=== PATIENT | female | born 1970 | race Caucasian/White ===

== ENCOUNTER 2016-04-10 14:39 | Emergency (ER) | payer MEDICAID, OTHER ==
[2016-04-10 15:42] VITALS: BP 141/73
--- NOTE | 2016-04-10 16:17 | UC ---
UC General HPI - HPI Summary HPI Summary: malaise, aches, chills, congestion, dry cough, itchy and red left eye for 3d. Works in a [employer]. Many ill staff members. Did get a flu shot this year. - History of Current Complaint Chief Complaint: UCGeneralIllness Stated Complaint: SORE THROAT/COUGH/LEFT EYE ISSUE Time Seen by Provider: 04/10/16 16:02 Hx Obtained From: Patient Onset/Duration: Gradual Onset, Lasting Days - 3 Timing: Constant Onset Severity: Mild Current Severity: Mild Associated Signs & Symptoms: Positive: Decreased Oral Intake, Fever, Headache, Weakness - Allergy/Home Medications Allergies/Adverse Reactions: Allergies Allergy/AdvReac Type Severity Reaction Status Date / Time Penicillins Allergy Rash Verified 04/10/16 15:42 Sulfa Drugs Allergy REDNESS, Verified 04/10/16 15:42 BURNING PMH/Surg Hx/FS Hx/Imm Hx Endocrine History Of: Denies: Diabetes, Thyroid Disease, Hyperthyroidism, Hypothyroidism, Dyslipidemia Cardiovascular History Of: Denies: Cardiac Disorders, Hypertension, Pacemaker/ICD, Myocardial Infarction , Congestive Heart Failure, Atrial Fibrillation, Deep Vein Thrombosis, Bleeding Disorders Respiratory History Of: Denies: COPD, Asthma GI/ History Of: Reports: Gastroesophageal Reflux Denies: Ulcer, Gastrointestinal Bleed, Gall Bladder Disease, Kidney Stones, Diverticulitis, Renal Disease, Urosepsis Neurological History Of: Reports: Migraine - IN THE PAST Denies: TIA, CVA, Dementia, Seizures Psychological History Of: Reports: Depression - ON MEDS Denies: Anxiety, Bipolar Disorder, Schizophrenia, Post Traumatic Stress Disorder Cancer History Of: Denies: Lung Cancer, Colorectal Cancer, Breast Cancer, Prostate Cancer, Cervical Cancer Other History Of: Negative For: HIV, Hepatitis B, Hepatitis C - Surgical History Surgical History: Yes Surgery Procedure, Year, and Place: TUBAL, 2009, [id number], TONGUE SURGERY, [facility], uterine ablation NVD - Family History Known Family History: Positive: Hypertension - Social History Occupation: Employed Full-time - cook in retirement Lives: With Family Alcohol Use: Occasionally Substance Use Type: None Smoking Status (MU): Former Smoker Type: Cigarettes Length of Time of Smoking/Using Tobacco: 20 years When Did the Patient Quit Smoking/Using Tobacco: 2007 - Immunization History Most Recent Influenza Vaccination: FALL 2014 Review of Systems Constitutional: Fever, Chills, Fatigue Skin: Negative Eyes: Drainage, Eye Redness ENT: Nasal Discharge Respiratory: Cough - mild, dry Cardiovascular: Negative Gastrointestinal: Negative Genitourinary: Negative Motor: Negative Neurovascular: Negative Musculoskeletal: Negative Neurological: Negative Psychological: Negative All Other Systems Reviewed And Are Negative: Yes Physical Exam Triage Information Reviewed: Yes Appearance: Well-Appearing, No Pain Distress, Well-Nourished Vital Signs: Initial Vital Signs Temp 97.5 F 04/10/16 15:36 Pulse 66 04/10/16 15:36 Resp 16 04/10/16 15:36 BP 141/73 04/10/16 15:36 Pulse Ox 100 04/10/16 15:36 Vital Signs Reviewed: Yes Eyes: Positive: Conjunctiva Inflamed - mild, left ENT: Positive: Hearing grossly normal, Pharynx normal, Nasal congestion, TMs normal. Negative: Tonsillar swelling, Tonsillar exudate, Muffled/hoarse voice Neck exam: Normal Neck: Positive: Supple Respiratory Exam: Normal Respiratory: Positive: Lungs clear, Normal breath sounds, No respiratory distress, No accessory muscle use Cardiovascular Exam: Normal Musculoskeletal Exam: Normal Neurological Exam: Normal Psychological Exam: Normal Skin Exam: Normal Course/Dx - Differential Dx - Multi-Symptom Provider Diagnoses: URI with conjunctivitis Discharge - Discharge Plan Condition: Stable Disposition: HOME Prescriptions: Benzonatate CAP* [Tessalon CAP*] 100 mg PO TID #30 cap Ciprofloxacin 0.3% OPTH.VÍCTOR* [Cipro 0.3% Opth*] 1 drop LEFT EYE Q4H #1 btl Pseudoephedrine HCl [Sudafed 12 Hour] 120 mg PO BID PRN #20 tab PRN Reason: Congestion Patient Education Materials: Upper Respiratory Infection (ED), Conjunctivitis ( ED) Forms: *Work Release Referrals: Fab Huynh MD [Primary Care Provider] -
== END 2016-04-10 16:21 | disposition home or self-care (01) ==
LOC: UCCORT 14:39
DX: J06.9 Acute upper respiratory infection, unspecified (principal); H10.32 Unspecified acute conjunctivitis, left eye; Z88.0 Allergy status to penicillin; Z88.2 Allergy status to sulfonamides; Z87.891 Personal history of nicotine dependence
CPT/HCPCS: 99212; G0463

== ENCOUNTER 2016-04-25 09:03 | Emergency (ER) | payer MEDICAID, OTHER ==
[2016-04-25 09:51] VITALS: BP 126/91
--- NOTE | 2016-04-25 11:14 | UC ---
Darrell Kohler Adam, [facility] on 04/25/16 at 1050 . Respiratory Complaint HPI - HPI Summary HPI Summary: Nurse's Note: COUGH, CONGESTION, SCRATCHY THROAT, CHILLS FOR THE PAST MONTH. WAS SEEN AT [facility] TWO WKS AGO, DIAGNOSED WITH UPPER RESPIRATORY INFECTION, TOOK MEDS PRESCRIBED. STARTED TO FEEL BETTER AND NOW SYMPTOMS ARE RETURNING. In Room: Pt has been sick for about a month. A few weeks ago she was given medication after her eyes became itchy. She started feeling better after resting for 2 days but as of yesterday she is feeling sick again. Pt states that her chief complaint is that her sinuses hurt and she has been having some drainage. Her ears and throat are also itchy. She has been having cold/hot sensations but her temperature has been around 98.4 F. She has a cough that is sometimes productive. No CP with the cough. No N/V/D or abdominal pain. No Hx of asthma. PMHx of GERD, migraines, and depression. FMHx of HTN and cardiac disease. Pt is a former smoker. - History of Current Complaint Chief Complaint: UCGeneralIllness Stated Complaint: SINUS COMPLAINT Time Seen by Provider: 04/25/16 09:45 Hx Obtained From: Patient Hx Last Menstrual Period: 5-6 YRS AGO, ABLATION Onset/Duration: Gradual Onset, Lasting Weeks, Still Present Timing: Constant Severity Initially: Moderate Severity Currently: Moderate Character: Cough: Nonproductive Aggravating Factors: Nothing Alleviating Factors: Nothing Associated Signs And Symptoms: Positive: Chills, URI, Nasal Congestion - Allergies/Home Medications Allergies/Adverse Reactions: Allergies Allergy/AdvReac Type Severity Reaction Status Date / Time Penicillins Allergy Rash Verified 04/10/16 15:42 Sulfa Drugs Allergy REDNESS, Verified 04/10/16 15:42 BURNING PMH/Surg Hx/FS Hx/Imm Hx Endocrine History Of: Denies: Diabetes, Thyroid Disease, Hyperthyroidism, Hypothyroidism, Dyslipidemia Cardiovascular History Of: Denies: Cardiac Disorders, Hypertension, Pacemaker/ICD, Myocardial Infarction , Congestive Heart Failure, Atrial Fibrillation, Deep Vein Thrombosis, Bleeding Disorders Respiratory History Of: Denies: COPD, Asthma GI/ History Of: Reports: Gastroesophageal Reflux Denies: Ulcer, Gastrointestinal Bleed, Gall Bladder Disease, Kidney Stones, Diverticulitis, Renal Disease, Urosepsis Neurological History Of: Reports: Migraine - IN THE PAST Denies: TIA, CVA, Dementia, Seizures Psychological History Of: Reports: Depression - ON MEDS Denies: Anxiety, Bipolar Disorder, Schizophrenia, Post Traumatic Stress Disorder Cancer History Of: Denies: Lung Cancer, Colorectal Cancer, Breast Cancer, Prostate Cancer, Cervical Cancer Other History Of: Negative For: HIV, Hepatitis B, Hepatitis C - Surgical History Surgical History: Yes Surgery Procedure, Year, and Place: TUBAL, 2009, [id number], TONGUE SURGERY, [facility], uterine ablation NVD - Family History Known Family History: Positive: Cardiac Disease, Hypertension, Other - Breast CA (maternal aunt and maternal grandmother) - Social History Occupation: Employed Full-time Lives: With Family - Domestic partner male Alcohol Use: Occasionally Substance Use Type: None Smoking Status (MU): Former Smoker Type: Cigarettes Length of Time of Smoking/Using Tobacco: 20 years When Did the Patient Quit Smoking/Using Tobacco: 2007 - Immunization History Most Recent Influenza Vaccination: FALL 2015 Review of Systems Constitutional: Chills ENT: Sore Throat, Nasal Discharge Respiratory: Cough All Other Systems Reviewed And Are Negative: Yes Physical Exam Triage Information Reviewed: Yes Appearance: Well-Appearing, No Pain Distress, Well-Nourished Vital Signs: Initial Vital Signs Temp 98.2 F 04/25/16 09:48 Pulse 79 04/25/16 09:48 Resp 18 04/25/16 09:48 BP 126/91 04/25/16 09:48 Pulse Ox 98 04/25/16 09:48 Eyes: Positive: Conjunctiva Clear ENT: Positive: Hearing grossly normal, Pharynx normal, Other: - SUPERIOR ERYTHEMA IN THE RIGHT TM. MILDLY TENDER MAXILLARY SINUSES.. Negative: Muffled/ hoarse voice Neck: Positive: Supple, No Lymphadenopathy Respiratory: Positive: Chest non-tender, Other: - EXTENDED EXPIRATORY PHASE WITH SCATTERED RHONCHI. Cardiovascular: Positive: RRR, No Murmur Abdomen Description: Positive: Nontender, No Organomegaly, Soft Bowel Sounds: Positive: Present Musculoskeletal: Positive: Strength Intact, ROM Intact Neurological: Positive: Alert Psychological: Positive: Age Appropriate Behavior Skin: Negative: rashes UC Diagnostic Evaluation - Laboratory O2 Sat by Pulse Oximetry: 98 Respiratory Course/Dx - Differential Dx/Diagnosis Differential Diagnosis/HQI/PQRI: Other - PNA vs URI Provider Diagnoses: 1. Bronchitis with bronchospasm. 2. Sinusitis Discharge - Discharge Plan Condition: Stable Disposition: HOME Prescriptions: Albuterol HFA INHALER* [Ventolin HFA Inhaler*] 1 - 2 puff INH Q4H PRN #1 mdi PRN Reason: Cough Azithromycin TAB* [Zithromax TAB*] 250 mg PO DAILY #6 tab Spacer/Aerosol-Holding Chamber [Aerochamber Mv] 1 mis XX Q6HR #1 mis Patient Education Materials: Sinusitis (ED), Acute Bronchitis (ED), Bronchospasm (ED) Forms: *Work Release Referrals: Fab Huynh MD [Primary Care Provider] - Additional Instructions: Follow up with Dr. Huynh. WE DISCUSSED: 1. YOU HAVE BRONCHITIS WITH BRONCHOSPASM AND SINUSITIS. 2. USE INHALER AND SPACER, TWO PUFFS FOUR TIMES A DAY. 3. Z VERN ANTIBIOTIC. 4. REST FOR TODAY AND TOMORROW. 5. SEE INSTRUCTIONS BELOW. COUGH, CONGESTION of CHEST, SINUSES OR EARS: The most important goal is to liquefy all the phlegm and get it out of your head and chest. Any illness causing cough, congestion, sore throat or sinus discomfort can be helped by doing the following: STAND UNDER SHOWER STREAM TO LOOSEN SECRETIONS. STAY AWAY FROM ANY SMOKE OR IRRITANTS. WHAT ELSE CAN HELP RELIEVE YOUR SYMPTOMS: DECONGESTANT: helps relieve stuffiness and clears sinuses. Pseudoephedrine ( Sudafed or generic) is effective but you need to ask the pharmacist for it because it may be kept behind the counter. ANTIHISTAMINES: are NOT helpful in many colds and flus because they can worsen sore throat, dry eyes and mouth and cause drowsiness. Examples are diphenhydramine, doxylamine and chlorpheniramine. They can help dry you out if you are having profuse, clear drainage from the nose. EXPECTORANTS: helps thin mucous in the nose and chest, making it easier to clear the fluid out. Expectorants are in most combination cough/cold remedies and should be taken with plenty of water. Guaifenesin is the most common expectorant and it comes in pill or liquid form. Mucinex is an extended release form of guaifenesin. COUGH SUPPRESANT: reduces the body's cough reflex. Dextromethorphan is in over the counter products, but sometimes narcotics such as codeine or hydrocodone are used to suppress cough. The most important goal is to liquefy all the phlegm and get it out of your head and chest: The following medicines (in prescription form or you can buy them without prescription) may help: To help with cough: DEXTROMETHORPHAN (Vicks, Robitussin, Nyquil and other brands) To help break up phlegm: GUAIFENESIN (Mucinex, Robitussin, other brands) To help clear congestion: PSEUDOEPHEDRINE (Sudafed, Dimetapp, other brands) TRY TO CLEAR NOSE: AFRIN NASAL SPRAY: 2-3 SPRAYS PER NOSTRIL, TWICE A DAY FOR TWO DAYS ONLY. STAND UNDER SHOWER STREAM TO LOOSEN SECRETIONS. USE A VAPORIZOR. STAY AWAY FROM ANY SMOKE OR IRRITANTS. USE SALINE NASAL SPRAY TO KEEP FLOW OF MUCOUS FROM NOSTRILS AND SINUSES. CONSIDER USING NETI POT TO HELP WITH ALLERGIES AND CONGESTION IN THE NOSE. USE THIS THREE TIMES A WEEK. YOU CAN GET THIS AT [employer] IN [place] OR VARIOUS DRUGSTORES. DRINK LOTS OF WARM FLUIDS USEFUL HOME REMEDIES: WARM WATER GARGLES, WITH TSP OF SALT PER 8 OUNCES OF WATER, GARGLE FOR A FEW SECONDS AND SPIT OUT; GARGLE AND SPIT OUT; EVERY THREE HOURS. AND/OR: WARM WATER OR TEA, HONEY AND LEMON; 2-3 CUPS A DAY. FOR SORE THROAT: KEEP THROAT MOIST WITH LOZENGES; TEA AND HONEY. USE WARM WATER GARGLES 3-4 TIMES A DAY. RE-CHECK IN 1O DAYS, NEEDED, IF YOU ARE NOT IMPROVING. RETURN HERE OR SEE YOUR PHYSICIAN. RE-CHECK SOONER IF INCREASED PAIN OR TEMPERATURE The documentation as recorded by the Darrell caballero Adam accurately reflects the service I personally performed and the decisions made by me, Judd Beck MD.
== END 2016-04-25 11:20 | disposition home or self-care (01) ==
LOC: UCEAST 09:03
DX: J20.9 Acute bronchitis, unspecified (principal); J32.9 Chronic sinusitis, unspecified; Z88.0 Allergy status to penicillin; Z88.2 Allergy status to sulfonamides; Z87.891 Personal history of nicotine dependence
CPT/HCPCS: 99212; G0463

== ENCOUNTER 2016-06-08 11:34 | Emergency (ER) | payer OTHER ==
[2016-06-08 12:07] VITALS: BP 154/76
--- NOTE | 2016-06-08 12:26 | UC ---
Ear Complaint HPI - HPI Summary HPI Summary: Patient has had 5 days if increased ear pain, it is now working its way down her neck and her thraot is sore and scratchy - History of Current Complaint Chief Complaint: UCEar Stated Complaint: EAR PAIN Time Seen by Provider: 06/08/16 12:17 Hx Obtained From: Patient Hx Last Menstrual Period: 5-6 YRS AGO, ABLATION ?: No Onset/Duration: Sudden Onset, Lasting Days Severity Initially: Moderate Severity Currently: Severe Aggravating Factors: Nothing Alleviating Factors: Nothing Associated Signs/Symptoms: Positive: URI Symptoms - Allergies/Home Medications Allergies/Adverse Reactions: Allergies Allergy/AdvReac Type Severity Reaction Status Date / Time Penicillins Allergy Rash Verified 06/08/16 12:07 Sulfa Drugs Allergy REDNESS, Verified 06/08/16 12:07 BURNING PMH/Surg Hx/FS Hx/Imm Hx Previously Healthy: Yes Endocrine History Of: Denies: Diabetes, Thyroid Disease, Hyperthyroidism, Hypothyroidism, Dyslipidemia Cardiovascular History Of: Denies: Cardiac Disorders, Hypertension, Pacemaker/ICD, Myocardial Infarction , Congestive Heart Failure, Atrial Fibrillation, Deep Vein Thrombosis, Bleeding Disorders Respiratory History Of: Denies: COPD, Asthma GI/ History Of: Reports: Gastroesophageal Reflux Denies: Ulcer, Gastrointestinal Bleed, Gall Bladder Disease, Kidney Stones, Diverticulitis, Renal Disease, Urosepsis Neurological History Of: Reports: Migraine - IN THE PAST Denies: TIA, CVA, Dementia, Seizures Psychological History Of: Reports: Depression - ON MEDS Denies: Anxiety, Bipolar Disorder, Schizophrenia, Post Traumatic Stress Disorder Cancer History Of: Denies: Lung Cancer, Colorectal Cancer, Breast Cancer, Prostate Cancer, Cervical Cancer Other History Of: Negative For: HIV, Hepatitis B, Hepatitis C - Surgical History Surgical History: Yes Surgery Procedure, Year, and Place: TUBAL, 2008, [id number], TONGUE SURGERY, [facility], uterine ablation NVD - Family History Known Family History: Positive: Cardiac Disease, Hypertension, Other - Breast CA (maternal aunt and maternal grandmother) - Social History Alcohol Use: Occasionally Substance Use Type: None Smoking Status (MU): Former Smoker Type: Cigarettes Length of Time of Smoking/Using Tobacco: 20 years When Did the Patient Quit Smoking/Using Tobacco: 2007 - Immunization History Most Recent Influenza Vaccination: FALL 2015 Review of Systems Constitutional: Negative Skin: Negative Eyes: Negative ENT: Sore Throat, Ear Ache, Nasal Discharge Respiratory: Negative Cardiovascular: Negative Gastrointestinal: Negative Genitourinary: Negative Motor: Negative Neurovascular: Negative Musculoskeletal: Myalgia - neck Neurological: Headache Psychological: Negative All Other Systems Reviewed And Are Negative: Yes Physical Exam Triage Information Reviewed: Yes Appearance: Well-Nourished, Ill-Appearing, Pain Distress Vital Signs: Initial Vital Signs Temp 98.6 F 06/08/16 12:00 Pulse 74 06/08/16 12:00 BP 154/76 06/08/16 12:00 Pulse Ox 95 06/08/16 12:00 Vital Signs Reviewed: Yes Eye Exam: Normal Eyes: Positive: Conjunctiva Clear ENT: Positive: Pharyngeal erythema, Nasal drainage, TM bulging, TM dull, TM red - right ear, Tonsillar swelling Dental Exam: Normal Neck: Positive: Supple, Nontender, Enlarged Nodes @ - behind right ear and right cervical Respiratory Exam: Normal Respiratory: Positive: Chest non-tender, Lungs clear, Normal breath sounds Cardiovascular Exam: Normal Cardiovascular: Positive: RRR, No Murmur, Pulses Normal Abdominal Exam: Normal Abdomen Description: Positive: Nontender, No Organomegaly, Soft Bowel Sounds: Positive: Present Musculoskeletal Exam: Normal Musculoskeletal: Positive: Strength Intact, ROM Intact, No Edema Neurological Exam: Normal Neurological: Positive: Alert, Muscle Tone Normal Psychological Exam: Normal Skin Exam: Normal Ear Complaint Course/Dx - Course Course Of Treatment: hx obtained, exam performed, meds reviewed, treated for right otitis media - Differential Dx/Diagnosis Differential Diagnosis/HQI/PQRI: Cerumen Impaction, Otitis Externa, Otitis Media , Perforated TM, URI Provider Diagnoses: otitis media right. lymphadenopathy. pharyngitis Discharge - Discharge Plan Condition: Stable Disposition: HOME Prescriptions: Cefdinir [Cefdinir 300 MG CAP] 300 mg PO BID #20 cap Patient Education Materials: Otitis Media (ED) Forms: *Work Release Referrals: Fab Huynh MD [Primary Care Provider] - Additional Instructions: Take the medication as prescribed. Increase fluid intake and get plenty of rest Tylenol or ibuprofen for pain and fever. Continue with the hot compresses multiple times a day.
== END 2016-06-08 12:36 | disposition home or self-care (01) ==
LOC: UCEAST 11:34
DX: H66.91 Otitis media, unspecified, right ear (principal); J02.9 Acute pharyngitis, unspecified; R59.1 Generalized enlarged lymph nodes; R03.0 Elevated blood-pressure reading, without diagnosis of hypertension; Z88.0 Allergy status to penicillin; Z88.2 Allergy status to sulfonamides; Z87.891 Personal history of nicotine dependence
CPT/HCPCS: 99212; G0463

== ENCOUNTER 2016-12-19 11:25 | Emergency (ER) | payer OTHER ==
[2016-12-19 11:38] VITALS: BP 125/73
--- NOTE | 2016-12-19 12:03 | ED ---
HPI Chest Pain - HPI Summary HPI Summary: Patient presents to the with left dorsum foot pain which has been worsening x 2 weeks. She denies known injury or increase walking or use of the foot. She denies being on her feet a lot, but denies sedentary lifestyle. The pain is a burning/aching and radiates up the anterior portion of the lower extremity. She denies diabetic history. She endorses hx of stress fx in the right foot 5 years ago which healed through rest and wearing a boot x 8 weeks. Patient is obese, but otherwise generally healthy. She is ambulating, but with pain. - History of Current Complaint Chief Complaint: UCLowerExtremity Time Seen by Provider: 12/19/16 11:47 Hx Obtained From: Patient Hx Last Menstrual Period: 5 years ago - uterine ablation Onset/Duration: Started Days Ago - Allergy/Home Medications Allergies/Adverse Reactions: Allergies Allergy/AdvReac Type Severity Reaction Status Date / Time Penicillins Allergy Rash Verified 12/19/16 11:37 Sulfa Drugs Allergy REDNESS, Verified 12/19/16 11:37 BURNING Home Medications: Home Medications Ibuprofen TAB* [Motrin TAB* 800 MG] 800 mg PO Q4HR PRN 12/19/16 [History Confirmed 12/19/16] Pain Patch 1 patch TOPICAL ONCE PRN 12/19/16 [History Confirmed 12/19/16] PMH/Surg Hx/FS Hx/Imm Hx Endocrine/Hematology History: Denies: Hx Diabetes, Hx Thyroid Disease Cardiovascular History: Denies: Hx Congestive Heart Failure, Hx Deep Vein Thrombosis, Hx Hypertension , Hx Myocardial Infarction, Hx Pacemaker/ICD, Other Cardiovascular Problems/ Disorders Respiratory History: Denies: Hx Asthma, Hx Chronic Obstructive Pulmonary Disease (COPD), Hx Lung Cancer GI History: Reports: Hx Gastroesophageal Reflux Disease Denies: Hx Gall Bladder Disease, Hx Gastrointestinal Bleed, Hx Ulcer, Hx Urosepsis, Other GI Disorders History: Denies: Hx Kidney Stones, Hx Renal Disease, Other Problems/Disorders Musculoskeletal History: Denies: Other Musculoskeletal History Sensory History: Reports: Hx Contacts or Glasses - READING GLASSES Denies: Hx Hearing Aid Opthamlomology History: Reports: Hx Contacts or Glasses - READING GLASSES Neurological History: Reports: Hx Migraine - IN THE PAST Denies: Hx Dementia, Hx Seizures, Hx Transient Ischemic Attacks (TIA) Psychiatric History: Reports: Hx Depression - ON MEDS Denies: Hx Anxiety, Hx Panic Disorder, Hx Schizophrenia, Hx Bipolar Disorder - Surgical History Surgery Procedure, Year, and Place: TUBAL, 2009, [id number], TONGUE SURGERY, [facility], uterine ablation NVD Hx Anesthesia Reactions: No Infectious Disease History: No Infectious Disease History: Denies: Hx Clostridium Difficile, Hx Hepatitis, Hx Human Immunodeficiency Virus (HIV), Hx of Known/Suspected MRSA, Hx Shingles, Hx Tuberculosis, Hx Known/ Suspected VRE, Hx Known/Suspected VRSA, History Other Infectious Disease, Traveled Outside the [place] in Last 30 Days - Family History Known Family History: Positive: Cardiac Disease, Hypertension, Other - Breast CA (maternal aunt and maternal grandmother) - Social History Alcohol Use: Occasionally Substance Use Type: Reports: None Smoking Status (MU): Former Smoker Type: Cigarettes Length of Time of Smoking/Using Tobacco: 20 years Physical Exam Vital Signs On Initial Exam: Initial Vitals Temp Pulse Resp BP Pulse Ox 97.3 F 72 18 125/73 99 12/19/16 11:32 12/19/16 11:32 12/19/16 11:32 12/19/16 11:32 12/19/16 11:32 Diagnostics - Vital Signs Vital Signs Temp Pulse Resp BP Pulse Ox 12/19/16 11:32 97.3 F 72 18 125/73 99 - Laboratory Lab Statement: Any lab studies that have been ordered have been reviewed, and results considered in the medical decision making process. Discharge - Discharge Plan Condition: Stable Disposition: HOME Patient Education Materials: Arthralgia (ED) Forms: *Work Release Referrals: Fab Huynh MD [Primary Care Provider] - Carlos Gupta MD [Medical Doctor] - Additional Instructions: Stress fracture Use the boot only if you feel it is improving your symptoms Ibuprofen 600mg three times daily Rest Elevate Ice Try to stay off the foot as much as possible.
--- NOTE | 2016-12-19 12:18 | RAD ---
INDICATION: Left foot pain COMPARISON: None TECHNIQUE: AP, lateral, and oblique views were obtained. FINDINGS: There is no acute fracture or dislocation. There are heel spurs. There is no significant soft tissue swelling. IMPRESSION: HEEL SPURS.
--- NOTE | 2016-12-19 12:43 | ED ---
Lower Extremity - HPI Summary HPI Summary: Patient presents to the with left dorsum foot pain which has been worsening x 2 weeks. She denies known injury or increase walking or use of the foot. She denies being on her feet a lot, but denies sedentary lifestyle. The pain is a burning/aching and radiates up the anterior portion of the lower extremity. She denies diabetic history. She endorses hx of stress fx in the right foot 5 years ago which healed through rest and wearing a boot x 8 weeks. Patient is obese, but otherwise generally healthy. She is ambulating, but with pain. - History of Current Complaint Chief Complaint: UCLowerExtremity Stated Complaint: FOOT PAIN Time Seen by Provider: 12/19/16 11:47 Hx Obtained From: Patient Hx Last Menstrual Period: 5 years ago - uterine ablation Mechanism Of Injury: Unknown Onset of Pain: Immediate Onset/Duration: Weeks Severity Initially: Moderate Severity Currently: Moderate Pain Intensity: 5 Pain Scale Used: 0-10 Numeric Timing: Constant Location: Is Discrete @ - dorsum of the left foot Associated Signs And Symptoms: Negative: Swelling, Redness, Bruising, Abdominal Pain, Knee Pain Aggravating Factor(s): Standing, Ambulation Alleviating Factor(s): Rest, Elevation Able to Bear Weight: Yes - Risk Factors Gout Risk Factors: Negative DVT Risk Factors: Negative Septic Arthritis Risk Factor: Negative - Allergies/Home Medications Allergies/Adverse Reactions: Allergies Allergy/AdvReac Type Severity Reaction Status Date / Time Penicillins Allergy Rash Verified 12/19/16 11:37 Sulfa Drugs Allergy REDNESS, Verified 12/19/16 11:37 BURNING Home Medications: Home Medications Ibuprofen TAB* [Motrin TAB* 800 MG] 800 mg PO Q4HR PRN 12/19/16 [History Confirmed 12/19/16] Pain Patch 1 patch TOPICAL ONCE PRN 12/19/16 [History Confirmed 12/19/16] PMH/Surg Hx/FS Hx/Imm Hx Previously Healthy: Yes Endocrine/Hematology History: Denies: Hx Diabetes, Hx Thyroid Disease Cardiovascular History: Denies: Hx Congestive Heart Failure, Hx Deep Vein Thrombosis, Hx Hypertension , Hx Myocardial Infarction, Hx Pacemaker/ICD, Other Cardiovascular Problems/ Disorders Respiratory History: Denies: Hx Asthma, Hx Chronic Obstructive Pulmonary Disease (COPD), Hx Lung Cancer GI History: Reports: Hx Gastroesophageal Reflux Disease Denies: Hx Gall Bladder Disease, Hx Gastrointestinal Bleed, Hx Ulcer, Hx Urosepsis, Other GI Disorders History: Denies: Hx Kidney Stones, Hx Renal Disease, Other Problems/Disorders Musculoskeletal History: Denies: Other Musculoskeletal History Sensory History: Reports: Hx Contacts or Glasses - READING GLASSES Denies: Hx Hearing Aid Opthamlomology History: Reports: Hx Contacts or Glasses - READING GLASSES Neurological History: Reports: Hx Migraine - IN THE PAST Denies: Hx Dementia, Hx Seizures, Hx Transient Ischemic Attacks (TIA) Psychiatric History: Reports: Hx Depression - ON MEDS Denies: Hx Anxiety, Hx Panic Disorder, Hx Schizophrenia, Hx Bipolar Disorder - Surgical History Surgery Procedure, Year, and Place: TUBAL, 2008, [id number], TONGUE SURGERY, [facility], uterine ablation NVD Hx Anesthesia Reactions: No - Immunization History Hx Pertussis Vaccination: No Immunizations Up to Date: Unable to Obtain/Confirm Infectious Disease History: No Infectious Disease History: Denies: Hx Clostridium Difficile, Hx Hepatitis, Hx Human Immunodeficiency Virus (HIV), Hx of Known/Suspected MRSA, Hx Shingles, Hx Tuberculosis, Hx Known/ Suspected VRE, Hx Known/Suspected VRSA, History Other Infectious Disease, Traveled Outside the [place] in Last 30 Days - Family History Known Family History: Positive: Cardiac Disease, Hypertension, Other - Breast CA (maternal aunt and maternal grandmother) - Social History Occupation: Employed Full-time Lives: With Family Alcohol Use: Occasionally Hx Substance Use: No Substance Use Type: Reports: None Hx Tobacco Use: Yes Smoking Status (MU): Former Smoker Type: Cigarettes Length of Time of Smoking/Using Tobacco: 20 years Review of Systems Constitutional: Negative Negative: Fever, Chills, Fatigue Eyes: Negative Cardiovascular: Negative Respiratory: Negative Genitourinary: Negative Positive: no symptoms reported, see HPI Positive: Arthralgia - dorsum of the left foot with pain Skin: Negative Neurological: Negative Psychological: Normal All Other Systems Reviewed And Are Negative: Yes Physical Exam Triage Information Reviewed: Yes Vital Signs On Initial Exam: Initial Vitals Temp Pulse Resp BP Pulse Ox 97.3 F 72 18 125/73 99 12/19/16 11:32 12/19/16 11:32 12/19/16 11:32 12/19/16 11:32 12/19/16 11:32 Vital Signs Reviewed: Yes Appearance: Positive: Well-Appearing, Well-Nourished Head/Face: Positive: Normal Head/Face Inspection Eyes: Positive: Normal, SEGUNDO, Conjunctiva Clear Neck: Positive: Supple, No Lymphadenopathy Respiratory/Lung Sounds: Positive: Clear to Auscultation, Breath Sounds Present Cardiovascular: Positive: Normal, RRR, Pulses are Symmetrical in both Upper and Lower Extremities Musculoskeletal: Positive: Pain @ - left dorsum of the foot, Other - no pain on palpation over the dorsum of the foot; garay test negative; no pain over the ankle joint including the ATFL. Deltoid ligament with crepitus. Denies other pain in the heel or toes of the left foot. denies calf pain or knee pain. Neurological: Positive: Speech Normal Psychiatric: Positive: Normal AVPU Assessment: Alert Diagnostics - Vital Signs Vital Signs Temp Pulse Resp BP Pulse Ox 12/19/16 11:32 97.3 F 72 18 125/73 99 - Laboratory Lab Statement: Any lab studies that have been ordered have been reviewed, and results considered in the medical decision making process. Lower Extremity Course/Dx - Course Course Of Treatment: Patient evaluated for left dorsum foot pain. Denies other pain or symptoms. Denies known injury. Hx of stress fx on contralateral foot. Patient is obese. Xray negative for stress fx but shows heel spurs. Patient is not exhibiting pain in the heel. Discussed treatment options with patient and she would like to try to the post op shoe. She is given instructions and healing time. She is OK with discharge. Ortho referral given. - Diagnoses Differential Diagnosis/HQI/PQRI: Positive: Fracture (Closed), Fracture (Open), Strain, Tendonitis Provider Diagnoses: Foot pain, left Discharge - Discharge Plan Condition: Stable Disposition: HOME Patient Education Materials: Arthralgia (ED) Forms: *Work Release Referrals: Fab Huynh MD [Primary Care Provider] - Carlos Gupta MD [Medical Doctor] - Additional Instructions: Stress fracture Use the boot only if you feel it is improving your symptoms Ibuprofen 600mg three times daily Rest Elevate Ice Try to stay off the foot as much as possible.
== END 2016-12-19 12:48 | disposition home or self-care (01) ==
LOC: UCEAST 11:25
DX: M79.672 Pain in left foot (principal); K21.9 Gastro-esophageal reflux disease without esophagitis; G43.909 Migraine, unspecified, not intractable, without status migrainosus; F32.9 Major depressive disorder, single episode, unspecified; E66.9 Obesity, unspecified; Z88.0 Allergy status to penicillin; Z88.2 Allergy status to sulfonamides; Z87.891 Personal history of nicotine dependence
CPT/HCPCS: 99212; G0463

== ENCOUNTER 2017-02-11 15:11 | Emergency (ER) | payer OTHER ==
[2017-02-11 15:35] VITALS: BP 142/80
--- NOTE | 2017-02-11 15:46 | UC ---
Eye Complaint HPI - HPI Summary HPI Summary: patient has redness and swelling of the right lower lid, 2 styes, sclera irritated and purulent drainage. - History of Current Complaint Chief Complaint: UCEye Stated Complaint: RIGHT EYE COMPLAINT Time Seen by Provider: 02/11/17 15:33 Hx Obtained From: Patient Hx Last Menstrual Period: 5 years ago - uterine ablation ?: No Onset/Duration: Sudden Onset, Lasting Days Severity Initially: Mild Severity Currently: Moderate Location of Injury: Conjunctiva, Eye Lid (lower), Sclera Character: Foreign Body Sensation Alleviating Factor(s): Nothing Associated Signs And Symptoms: Positive: Drainage (Purulent) - Allergies/Home Medications Allergies/Adverse Reactions: Allergies Allergy/AdvReac Type Severity Reaction Status Date / Time Penicillins Allergy Rash Verified 02/11/17 15:35 Sulfa Drugs Allergy REDNESS, Verified 02/11/17 15:35 BURNING PMH/Surg Hx/FS Hx/Imm Hx Previously Healthy: Yes Other History Of: Negative For: HIV, Hepatitis B, Hepatitis C - Surgical History Surgical History: Yes Surgery Procedure, Year, and Place: TUBAL, 2008, [id number], TONGUE SURGERY, [facility], uterine ablation NVD - Family History Known Family History: Positive: Cardiac Disease, Hypertension, Other - Breast CA (maternal aunt and maternal grandmother) - Social History Alcohol Use: Occasionally Substance Use Type: None Smoking Status (MU): Former Smoker Type: Cigarettes Length of Time of Smoking/Using Tobacco: 20 years When Did the Patient Quit Smoking/Using Tobacco: 2007 Household Exposure Type: Cigars - Immunization History Most Recent Influenza Vaccination: Fall 2016 Review of Systems Constitutional: Negative Skin: Negative Eyes: Drainage, Eye Redness ENT: Negative Respiratory: Negative Cardiovascular: Negative Gastrointestinal: Negative Motor: Negative Neurovascular: Negative Musculoskeletal: Negative Neurological: Negative Psychological: Negative Is Patient Immunocompromised?: No All Other Systems Reviewed And Are Negative: Yes Physical Exam Triage Information Reviewed: Yes Appearance: Well-Appearing, Well-Nourished, Pain Distress Vital Signs: Initial Vital Signs Temp 97.3 F 02/11/17 15:31 Pulse 69 02/11/17 15:31 Resp 16 02/11/17 15:31 BP 142/80 02/11/17 15:31 Pulse Ox 99 02/11/17 15:31 Vital Signs Reviewed: Yes Eyes: Positive: Conjunctiva Inflamed, Other: - 2 styes on lower lid, sclera irritaed, yellow drainage from eye, lower lid swelling ENT Exam: Normal Dental Exam: Normal Neck exam: Normal Respiratory Exam: Normal Cardiovascular Exam: Normal Abdominal Exam: Normal Musculoskeletal Exam: Normal Neurological Exam: Normal Psychological Exam: Normal Eye Complaint Course/Dx - Course Course Of Treatment: hx obtained, exam performed, medw reviewed, treated for conjunctivitis and educated about treatment of styes - Differential Dx/Diagnosis Differential Diagnosis/HQI/PQRI: Conjunctivitis, Periorbital Cellulitis Provider Diagnoses: conjunctiviits of right eye. 2 styes in right eye Discharge - Discharge Plan Condition: Stable Disposition: HOME Prescriptions: Erythromycin OPHTH.OINT* [Ilotycin OPHTH.OINT*] 1 applic RIGHT EYE TID #1 tube Patient Education Materials: Leah (ED) Referrals: Fab Huynh MD [Primary Care Provider] - Additional Instructions: 1. use the cream as prescribed. 2. Warm compresses to the eye and gentle massage with a washcloth every few hours to help with the styes, avoid eye makeup until cleared. 3. Followed up with any increased symptoms.
== END 2017-02-11 15:52 | disposition home or self-care (01) ==
LOC: UCCORT 15:11
DX: H10.31 Unspecified acute conjunctivitis, right eye (principal); H00.012 Hordeolum externum right lower eyelid; Z88.0 Allergy status to penicillin; Z88.2 Allergy status to sulfonamides; Z87.891 Personal history of nicotine dependence
CPT/HCPCS: 99212; G0463

== ENCOUNTER 2017-02-28 15:30 | Emergency (ER) | payer OTHER ==
[2017-02-28 15:38] VITALS: BP 152/73
--- NOTE | 2017-02-28 15:57 | UC ---
Throat Pain/Nasal Damien HPI - HPI Summary HPI Summary: 46 y/o female presents to the urgent care c/o sinus pain and sinus congestion with SMITH for the past week. Pt reports symptoms are getting worse since yesterday with green nasal discharge and post nasal drip that is trigger cough. SMITH is 5/10. She has been taking Tylenol to alleviate symptoms. Pt denies fever, SOB, chest pain, abdominal pain, N/V/D. - History of Current Complaint Chief Complaint: UCGeneralIllness Stated Complaint: SINUS COMPLAINT Time Seen by Provider: 02/28/17 15:56 Hx Obtained From: Patient Hx Last Menstrual Period: 5 years ago - uterine ablation ?: No Onset/Duration: Gradual Onset, Lasting Weeks - 1 week, Still Present Severity: Moderate Pain Intensity: 5 Pain Scale Used: 0-10 Numeric Cough: Nonproductive Associated Signs & Symptoms: Positive: Sinus Discomfort, Nasal Discharge - Epiglottits Risk Factors Epiglottis Risk Factors: Negative - Allergies/Home Medications Allergies/Adverse Reactions: Allergies Allergy/AdvReac Type Severity Reaction Status Date / Time Penicillins Allergy Rash Verified 02/28/17 15:34 Sulfa Drugs Allergy REDNESS, Verified 02/28/17 15:34 BURNING PMH/Surg Hx/FS Hx/Imm Hx Previously Healthy: Yes GI/ History: Gastroesophageal Reflux Psychological History: Anxiety, Depression Other History Of: Negative For: HIV, Hepatitis B, Hepatitis C - Surgical History Surgical History: Yes Surgery Procedure, Year, and Place: TUBAL, 2008, [id number], TONGUE SURGERY, [facility], uterine ablation NVD - Family History Known Family History: Positive: Cardiac Disease, Hypertension, Other - Breast CA (maternal aunt and maternal grandmother) - Social History Occupation: Employed Full-time Lives: With Family Alcohol Use: Occasionally Substance Use Type: None Smoking Status (MU): Former Smoker Type: Cigarettes Length of Time of Smoking/Using Tobacco: 20 years When Did the Patient Quit Smoking/Using Tobacco: 2007 Household Exposure Type: Cigars - Immunization History Most Recent Influenza Vaccination: Fall 2016 Review of Systems Constitutional: Negative Skin: Negative Eyes: Negative ENT: Nasal Discharge, Sinus Congestion, Sinus Pain/Tenderness Respiratory: Cough Cardiovascular: Negative Gastrointestinal: Negative Genitourinary: Negative Motor: Negative Neurovascular: Negative Musculoskeletal: Negative Neurological: Headache Psychological: Negative Is Patient Immunocompromised?: No All Other Systems Reviewed And Are Negative: Yes Physical Exam Triage Information Reviewed: Yes Vital Signs: Initial Vital Signs Temp 96.8 F 02/28/17 15:36 Pulse 64 02/28/17 15:36 Resp 18 02/28/17 15:36 BP 152/73 02/28/17 15:36 Pulse Ox 98 02/28/17 15:36 - Additional Comments Vitals: reviewed General: Well developed, well-nourished female patient with NAD. Head and face: Normocephalic and atraumatic, Positive tenderness over the frontal and maxillary sinuses.. Eyes: PERRLA, EOMI x 2. Normal conjunctiva. No eye discharge. ENT: Ears and TM with normal limits. Nose: with moderate yellowish discharge and erythematous mucosa. Pharynx with erythema, no exudate. Neck: Supple, no JVD, no carotid bruits and no lymphadenopathy. Lungs: clear, no rales, no rhonchi, no wheezes. CVS: RRR, S1 and S2 present no murmurs or gallops appreciated. Abdomen: soft nontender with positive bowel sounds. Extremities: no edema noted. Neuro: WNL. Skin: warm and dry Throat Pain/Nasal Course/Dx - Course Course Of Treatment: 46 y/o female presents to the urgent care c/o sinus pain and sinus congestion with SMITH for the past week. Pt reports symptoms are getting worse since yesterday with green nasal discharge and post nasal drip that is trigger cough. SMITH is 5/10. She has been taking Tylenol to alleviate symptoms. Pt denies fever, SOB, chest pain, abdominal pain, N/V/D.Hx obtained. Pt with sinusitis on examiantion. Pt with 1 week of symptoms getting worse. Pt PCN allergic. Rx Doxycycline PO and flonase nasal spray. Claritin PO to alleviate symptoms. Pt's BP is elevated today advised to decrease salt in diet, monitor BP and f/u with PCP for further management. Discharge instructions explained to Pt. Advised to Return to the clinic or PCP if symptoms do not improve.Pt understood and agreed with plan of care. - Differential Dx/Diagnosis Differential Diagnosis/HQI/PQRI: Influenza, Laryngitis, Otitis Media, Pharyngitis, Sinusitis, Tonsillitis, URI Provider Diagnoses: 1- Acute bacterial sinusitis. 2- elevated BP w/o Hx of HTN Discharge - Discharge Plan Condition: Stable Disposition: HOME Prescriptions: DOXYcycline CAP(*) [DOXYcycline 100MG CAP(*)] 100 mg PO BID #20 cap Fluticasone NASAL SPRAY 50MCG* [Flonase NASAL SPRAY 50MCG*] 2 spray BOTH NARES DAILY #1 btl Loratadine & Pseudoephedrine [Claritin-D 12 Hour] 1 tab PO BID #30 tab Patient Education Materials: Sinusitis (ED), Low Sodium Diet (ED) Referrals: Fab Huynh MD [Primary Care Provider] - If Needed Additional Instructions: 1- Please increase fluid intake and rest. take full course of antibiotic to avoid resistance 2-Use Flonase as directed to help drain fluid. Also buy saline drops to clear sinuses 3-Take Sudafed or Claritin PO to alleviates sinus congestion 4-Return to the clinic or PCP if symptoms do not improve for further management and treatment 5-your BP is elevated today please decrease salt in your diet and monitor Bp if it continues to be elevated please f/u with your PCP for further management
== END 2017-02-28 16:23 | disposition home or self-care (01) ==
LOC: UCEAST 15:30
DX: J01.90 Acute sinusitis, unspecified (principal); R03.0 Elevated blood-pressure reading, without diagnosis of hypertension; K21.9 Gastro-esophageal reflux disease without esophagitis; F41.9 Anxiety disorder, unspecified; F32.9 Major depressive disorder, single episode, unspecified; Z88.0 Allergy status to penicillin; Z88.2 Allergy status to sulfonamides; Z87.891 Personal history of nicotine dependence
CPT/HCPCS: 99212; G0463

== ENCOUNTER 2017-03-28 09:14 | Emergency (ER) | payer OTHER ==
[2017-03-28 09:40] VITALS: BP 148/79
--- NOTE | 2017-03-28 10:15 | UC ---
Throat Pain/Nasal Damien HPI - HPI Summary HPI Summary: Pt presents with cough, chills, sinus congestion, and body aches for the last two days. She has been using flonase with no relief. Has felt feverish, but has not taken her temperature. Denies SOB, chest pain, abdominal pain, N/V/D/C. - History of Current Complaint Chief Complaint: UCRespiratory Stated Complaint: COUGH SORE THROAT Time Seen by Provider: 03/28/17 10:14 Hx Obtained From: Patient Hx Last Menstrual Period: 5 years ago - uterine ablation Severity: Moderate Pain Intensity: 6 Pain Scale Used: 0-10 Numeric Cough: Nonproductive - Allergies/Home Medications Allergies/Adverse Reactions: Allergies Allergy/AdvReac Type Severity Reaction Status Date / Time Penicillins Allergy Rash Verified 03/28/17 09:35 Sulfa Drugs Allergy REDNESS, Verified 03/28/17 09:35 BURNING PMH/Surg Hx/FS Hx/Imm Hx GI/ History: Gastroesophageal Reflux Psychological History: Anxiety, Depression Other History Of: Negative For: HIV, Hepatitis B, Hepatitis C - Surgical History Surgical History: Yes Surgery Procedure, Year, and Place: TUBAL, 2008, [id number], TONGUE SURGERY, [facility], uterine ablation NVD - Family History Known Family History: Positive: Cardiac Disease, Hypertension, Other - Breast CA (maternal aunt and maternal grandmother) - Social History Occupation: Employed Full-time Lives: With Family Alcohol Use: Occasionally Substance Use Type: None Smoking Status (MU): Former Smoker Type: Cigarettes Length of Time of Smoking/Using Tobacco: 20 years When Did the Patient Quit Smoking/Using Tobacco: 2007 Household Exposure Type: Cigars - Immunization History Most Recent Influenza Vaccination: Fall 2016 Review of Systems Constitutional: Chills, Other - Generalized body aches Skin: Negative Eyes: Negative ENT: Sinus Congestion Respiratory: Cough Cardiovascular: Negative Gastrointestinal: Negative All Other Systems Reviewed And Are Negative: Yes Physical Exam Triage Information Reviewed: Yes Appearance: Well-Appearing, Well-Nourished Vital Signs: Initial Vital Signs Temp 96.1 F 03/28/17 09:37 Pulse 68 03/28/17 09:37 Resp 16 03/28/17 09:37 BP 148/79 03/28/17 09:37 Pulse Ox 97 03/28/17 09:37 Vital Signs Reviewed: Yes Eyes: Positive: Conjunctiva Clear. Negative: Conjunctiva Inflamed, Discharge ENT: Positive: Hearing grossly normal, Pharynx normal, Nasal congestion, TMs normal, Sinus tenderness, Uvula midline. Negative: Pharyngeal erythema, Nasal drainage, TM bulging, TM dull, TM red, Tonsillar swelling, Tonsillar exudate, Muffled voice, Hoarse voice Neck: Positive: Supple, Nontender, No Lymphadenopathy Respiratory: Positive: Chest non-tender, No respiratory distress, No accessory muscle use, Wheezing - Throughout. Negative: Crackles Cardiovascular: Positive: RRR, No Murmur, Pulses Normal Neurological: Positive: Alert Psychological: Positive: Age Appropriate Behavior Skin: Negative: rashes Re-Evaluation - Re-Evaluation First Eval Re-Evaluation Time: 10:38 Change: Improved Comment: Improved lung sounds with less wheezing. Pt feels subjectively better and able to "take a deep breath" Throat Pain/Nasal Course/Dx - Course Course Of Treatment: Duoneb given in office. Improved lung sounds with less wheezing. Pt feels subjuctively better. POC flu negative. Suspect viral bronchitis. Rx for tessalon and albuterol. - Differential Dx/Diagnosis Differential Diagnosis/HQI/PQRI: Laryngitis, Mononucleosis, Otitis Media, Pharyngitis, Sinusitis, Tonsillitis, URI Provider Diagnoses: Bronchitis Discharge - Discharge Plan Condition: Stable Disposition: HOME Prescriptions: Albuterol HFA INHALER* [Ventolin HFA Inhaler*] 2 puff INH Q6H PRN #1 mdi PRN Reason: Sob/Wheezing Benzonatate CAP* [Tessalon 100 MG CAP*] 100 mg PO TID PRN #21 cap PRN Reason: Cough Patient Education Materials: Acute Bronchitis (ED) Referrals: Fab Huynh MD [Primary Care Provider] - Additional Instructions: If you develop a fever, shortness of breath, chest pain, new or worsening symptoms - please call your PCP or go to the ED. Your blood pressure was high at todays visit. Please see your primary provider within 4 weeks for recheck and re-evaluation.
[2017-03-28] MEDS ORDERED: Albuterol/Ipratropium NEB.SOL* Albuterol 2.5 MG/Ipratropium 0.5 MG 3 ML INH ONE (10:18)
== END 2017-03-28 10:50 | disposition home or self-care (01) ==
LOC: UCEAST 09:14
DX: J40 Bronchitis, not specified as acute or chronic (principal); Z87.891 Personal history of nicotine dependence; Z72.89 Other problems related to lifestyle
CPT/HCPCS: 87502; 99212; A9270-GY; G0463

== ENCOUNTER 2017-04-27 18:26 | Emergency (ER) | payer OTHER ==
[2017-04-27 21:20] VITALS: BP 144/98
[2017-04-27] MEDS ORDERED: Cyclobenzaprine TAB* 10 MG PO ONE (21:32)
[2017-04-27] MEDS ORDERED: Ketorolac INJ* 60 MG/2 ML VIAL IM ONE (21:32)
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
== END 2017-04-27 21:47 | disposition home or self-care (01) ==
LOC: UCEAST 18:26
DX: T14.8XXA Other injury of unspecified body region, initial encounter (principal); V48.0XXA Car driver injured in noncollision transport accident in nontraffic accident, initial encounter; Y92.410 Unspecified street and highway as the place of occurrence of the external cause; Z87.891 Personal history of nicotine dependence; Z88.0 Allergy status to penicillin; Z88.2 Allergy status to sulfonamides
CPT/HCPCS: 99212; A9270-GY; G0463; J1885

== ENCOUNTER 2017-09-16 11:07 | Emergency (ER) | payer OTHER ==
[2017-09-16 11:47] VITALS: BP 137/86
--- NOTE | 2017-09-16 12:05 | UC ---
Throat Pain/Nasal Damien HPI - HPI Summary HPI Summary: 47 yo female presents with 4 days of sinus pain/pressure/congestion and b/l ear pain. Yesterday her left ear became much more painful and today sounds feel muffled out of that ear. She has been using flonase and taking ibuprofen with no relief. Denies fever, chills, cough, SOB, chest pain. - History of Current Complaint Hx Obtained From: Patient Hx Last Menstrual Period: NA Onset/Duration: Gradual Onset Severity: Mild Pain Intensity: 2 Pain Scale Used: 0-10 Numeric <Daniele Almendarez - Last Filed: 09/16/17 12:11> <Fab Hernandez - Last Filed: 09/16/17 13:56> - History of Current Complaint Chief Complaint: UCGeneralIllness Stated Complaint: SINUS ISSUE EARS PLUGGED Time Seen by Provider: 09/16/17 11:59 - Allergies/Home Medications Allergies/Adverse Reactions: Allergies Allergy/AdvReac Type Severity Reaction Status Date / Time Penicillins Allergy Rash Verified 09/16/17 11:49 Sulfa (Sulfonamide Allergy See Comment Verified 09/16/17 11:49 Antibiotics) PMH/Surg Hx/FS Hx/Imm Hx Endocrine History: Hypothyroidism GI/ History: Gastroesophageal Reflux Psychological History: Anxiety, Depression Other History Of: Negative For: HIV, Hepatitis B, Hepatitis C - Surgical History Surgical History: Yes Surgery Procedure, Year, and Place: TUBAL, 2008, [id number], TONGUE SURGERY, [facility], uterine ablation NVD - Family History Known Family History: Positive: Cardiac Disease, Hypertension, Other - Breast CA (maternal aunt and maternal grandmother) - Social History Occupation: Employed Full-time Lives: With Family Alcohol Use: Occasionally Substance Use Type: None Smoking Status (MU): Former Smoker Type: Cigarettes Length of Time of Smoking/Using Tobacco: 20 years When Did the Patient Quit Smoking/Using Tobacco: 2007 Household Exposure Type: Cigars - Immunization History Most Recent Influenza Vaccination: Fall 2016 <Daniele Almendarez - Last Filed: 09/16/17 12:11> Review of Systems Constitutional: Negative Skin: Negative Eyes: Negative ENT: Ear Ache, Nasal Discharge, Sinus Congestion, Sinus Pain/Tenderness Respiratory: Negative Cardiovascular: Negative Gastrointestinal: Negative Neurovascular: Negative Neurological: Negative Psychological: Negative All Other Systems Reviewed And Are Negative: Yes <Daniele Almendarez Last Filed: 09/16/17 12:11> Physical Exam - Summary Physical Exam Summary: GENERAL: NAD. WDWN. No pain distress. SKIN: No rashes, sores, lesions, or open wounds. HEENT: Head: AT/NC Eyes: EOM intact. Conjunctiva clear without inflammation or discharge. Ears: Hearing grossly normal. LEFT TM with mild erythema and bulging. No canal edema or drainage. RIGHT TM: mild canal erythema. TM normal. Nose: Nasal mucosa mildly swollen and erythematous with clear discharge. NTTP maxillary and frontal sinus. Throat: Posterior oropharynx without exudates, erythema, or tonsillar enlargement. Uvula midline. NECK: Supple. Nontender. No lymphadenopathy. CHEST: CTAB. No r/r/w. No accessory muscle use. Breathing comfortably and in no distress. CV: RRR. Without m/r/g. Pulses intact. Brisk cap refill. NEURO: Alert. CN II-XII grossly intact. PSYCH: Age appropriate behavior. Triage Information Reviewed: Yes Vital Signs: Initial Vital Signs Temp 97.8 F 09/16/17 11:42 Pulse 73 09/16/17 11:42 Resp 18 09/16/17 11:42 BP 137/86 09/16/17 11:42 Pulse Ox 99 09/16/17 11:42 <Daniele Almendarez Last Filed: 09/16/17 12:11> Vital Signs: Initial Vital Signs Temp 97.8 F 09/16/17 11:42 Pulse 73 09/16/17 11:42 Resp 18 09/16/17 11:42 BP 137/86 09/16/17 11:42 Pulse Ox 99 09/16/17 11:42 <Fab Hernandez - Last Filed: 09/16/17 13:56> Throat Pain/Nasal Course/Dx - Course Course Of Treatment: Otitis media left - Differential Dx/Diagnosis Provider Diagnoses: Otitis media left <Daniele Almendarez Last Filed: 09/16/17 12:11> Discharge - Sign-Out/Discharge Documenting (check all that apply): Discharge/Admit/Transfer - Billing Disposition and Condition Condition: STABLE Disposition: Home <Daniele Almendarez Last Filed: 09/16/17 12:11> - Billing Disposition and Condition Condition: STABLE Disposition: Home <Fab Hernandez L - Last Filed: 09/16/17 13:56> - Discharge Plan Condition: Stable Disposition: HOME Prescriptions: Azithromycin TAB* [Zithromax TAB (Z-VERN) 250 mg #6 tabs] 2 tab PO .TODAY, THEN 1 DAILY #1 vern Patient Education Materials: Ear Infection (ED) Forms: *Work Release Referrals: Fab Huynh MD [Primary Care Provider] - Additional Instructions: If you develop a fever, shortness of breath, chest pain, new or worsening symptoms - please call your PCP or go to the ED. Your blood pressure was high at todays visit. Please see your primary provider within 4 weeks for recheck and re-evaluation. Per institutional requirements, I have reviewed the chart, however, I was not consulted specifically or made aware of this patient by the above midlevel provider. I did not personally evaluate, interact with , or disposition this patient.
== END 2017-09-16 12:10 | disposition home or self-care (01) ==
LOC: UCEAST 11:07
DX: H66.92 Otitis media, unspecified, left ear (principal); H92.01 Otalgia, right ear; J34.89 Other specified disorders of nose and nasal sinuses; Z88.0 Allergy status to penicillin; Z88.2 Allergy status to sulfonamides; Z87.891 Personal history of nicotine dependence
CPT/HCPCS: 99212; G0463

== ENCOUNTER 2017-10-06 14:46 | Emergency (ER) | payer MEDICAID, OTHER ==
[2017-10-06 15:56] VITALS: BP 138/98
--- NOTE | 2017-10-06 16:11 | UC ---
Throat Pain/Nasal Damien HPI - HPI Summary HPI Summary: worsening cough and nasal drainage for 5 days - History of Current Complaint Chief Complaint: UCRespiratory Stated Complaint: SINUS COMPLAINT Time Seen by Provider: 10/06/17 16:01 Hx Obtained From: Patient Hx Last Menstrual Period: NA ?: No Onset/Duration: Sudden Onset, Lasting Days - 3 Pain Intensity: 4 Pain Scale Used: 0-10 Numeric Cough: Nonproductive Associated Signs & Symptoms: Positive: Sinus Discomfort, Nasal Discharge Related History: Seasonal Allergies - Allergies/Home Medications Allergies/Adverse Reactions: Allergies Allergy/AdvReac Type Severity Reaction Status Date / Time Penicillins Allergy Rash Verified 10/06/17 15:57 Sulfa (Sulfonamide Allergy See Comment Verified 10/06/17 15:57 Antibiotics) PMH/Surg Hx/FS Hx/Imm Hx Previously Healthy: No Endocrine History: Hypothyroidism GI/ History: Gastroesophageal Reflux Psychological History: Depression Other History Of: Negative For: HIV, Hepatitis B, Hepatitis C - Surgical History Surgical History: Yes Surgery Procedure, Year, and Place: TUBAL, 2008, [id number], TONGUE SURGERY, [facility], uterine ablation NVD - Family History Known Family History: Positive: Cardiac Disease, Hypertension, Other - Breast CA (maternal aunt and maternal grandmother) - Social History Occupation: Employed Full-time Lives: With Family Alcohol Use: Occasionally Substance Use Type: None Smoking Status (MU): Former Smoker Type: Cigarettes Length of Time of Smoking/Using Tobacco: 20 years When Did the Patient Quit Smoking/Using Tobacco: 2007 Household Exposure Type: Cigars - Immunization History Most Recent Influenza Vaccination: Fall 2016 Review of Systems Constitutional: Negative Skin: Negative Eyes: Negative ENT: Nasal Discharge, Sinus Congestion Respiratory: Cough Cardiovascular: Negative Gastrointestinal: Negative Genitourinary: Negative Motor: Negative Neurovascular: Negative Musculoskeletal: Negative Neurological: Negative Psychological: Negative Is Patient Immunocompromised?: No All Other Systems Reviewed And Are Negative: Yes Physical Exam Triage Information Reviewed: Yes Appearance: Well-Appearing, No Pain Distress, Obese Vital Signs: Initial Vital Signs Temp 96.8 F 10/06/17 15:52 Pulse 69 10/06/17 15:52 Resp 18 10/06/17 15:52 BP 138/98 10/06/17 15:52 Pulse Ox 99 10/06/17 15:52 Vital Signs Reviewed: Yes Eye Exam: Normal Eyes: Positive: Conjunctiva Clear ENT Exam: Normal ENT: Positive: Normal ENT inspection, Hearing grossly normal, Pharynx normal, TMs normal, Uvula midline. Negative: Nasal congestion, Trismus, Muffled voice, Hoarse voice, Dental tenderness, Sinus tenderness Dental Exam: Normal Neck exam: Normal Neck: Positive: Supple, Nontender Respiratory Exam: Normal Respiratory: Positive: Chest non-tender, Lungs clear, Normal breath sounds, No respiratory distress, No accessory muscle use Cardiovascular Exam: Normal Cardiovascular: Positive: RRR, No Murmur, Pulses Normal, Brisk Capillary Refill Musculoskeletal Exam: Normal Musculoskeletal: Positive: Strength Intact, ROM Intact, No Edema Neurological Exam: Normal Neurological: Positive: Alert, Muscle Tone Normal Psychological Exam: Normal Skin Exam: Normal Throat Pain/Nasal Course/Dx - Course Assessment/Plan: encouraged and educated to use nasal rinse flonase, zyrtec, somoking cesasation, antibiodics are not indicated - Differential Dx/Diagnosis Provider Diagnoses: sinus congestion Discharge - Sign-Out/Discharge Documenting (check all that apply): Patient Departure - Discharge Plan Condition: Stable Disposition: HOME Prescriptions: Fluticasone NASAL SPRAY 50MCG* [Flonase NASAL SPRAY 50MCG*] 2 spray BOTH NARES DAILY #1 btl Patient Education Materials: Upper Respiratory Infection (ED), Hypertension (ED ), Nasal Rinse (ED), How to Use Nasal [place] (ED), Postnasal Drip (DC) Referrals: Fab Huynh MD [Primary Care Provider] - 2 Weeks - Billing Disposition and Condition Condition: STABLE Disposition: Home
== END 2017-10-06 16:50 | disposition home or self-care (01) ==
LOC: UCEAST 14:46
DX: R09.81 Nasal congestion (principal); E03.9 Hypothyroidism, unspecified; K21.9 Gastro-esophageal reflux disease without esophagitis; F32.9 Major depressive disorder, single episode, unspecified; Z88.0 Allergy status to penicillin; Z88.2 Allergy status to sulfonamides; Z82.49 Family history of ischemic heart disease and other diseases of the circulatory system; Z80.3 Family history of malignant neoplasm of breast; Z87.891 Personal history of nicotine dependence
CPT/HCPCS: 87651; 99211; G0463

== ENCOUNTER 2017-11-16 15:11 | Emergency (ER) | payer MEDICAID, OTHER ==
[2017-11-16 15:54] VITALS: BP 139/88
--- NOTE | 2017-11-16 16:30 | UC ---
Respiratory Complaint HPI - HPI Summary HPI Summary: STATES SHE HAS HAD SINUS PRESSURE, SMITH, NASAL CONGESTION AND COUGH FOR MONTHS. NO FEVER, N/V/D. - History of Current Complaint Chief Complaint: UCRespiratory Stated Complaint: SORE THROAT, SINUS COMPLAINT Time Seen by Provider: 11/16/17 16:13 Hx Obtained From: Patient Hx Last Menstrual Period: NA Onset/Duration: Gradual Onset, Lasting Weeks, Still Present Timing: Constant Severity Initially: Moderate Severity Currently: Moderate Pain Intensity: 0 Pain Scale Used: 0-10 Numeric Character: Cough: Nonproductive Aggravating Factors: Nothing Alleviating Factors: Nothing Associated Signs And Symptoms: Positive: Nasal Congestion, Sinus Discomfort. Negative: Dyspnea, Fever, Wheezing, URI - Allergies/Home Medications Allergies/Adverse Reactions: Allergies Allergy/AdvReac Type Severity Reaction Status Date / Time Penicillins Allergy Rash Verified 11/16/17 15:54 Sulfa (Sulfonamide Allergy See Comment Verified 11/16/17 15:54 Antibiotics) PMH/Surg Hx/FS Hx/Imm Hx Endocrine History: Hypothyroidism GI/ History: Gastroesophageal Reflux Psychological History: Depression Other History Of: Negative For: HIV, Hepatitis B, Hepatitis C - Surgical History Surgical History: Yes Surgery Procedure, Year, and Place: TUBAL, 2008, [id number], TONGUE SURGERY, [facility], uterine ablation NVD - Family History Known Family History: Positive: Cardiac Disease, Hypertension, Other - Breast CA (maternal aunt and maternal grandmother) - Social History Alcohol Use: Occasionally Substance Use Type: None Smoking Status (MU): Former Smoker Type: Cigarettes Length of Time of Smoking/Using Tobacco: 20 years When Did the Patient Quit Smoking/Using Tobacco: 2007 Household Exposure Type: Cigars - Immunization History Most Recent Influenza Vaccination: Fall 2016 Review of Systems Constitutional: Negative ENT: Sore Throat, Nasal Discharge Respiratory: Cough Cardiovascular: Negative Gastrointestinal: Negative Genitourinary: Negative Neurological: Headache All Other Systems Reviewed And Are Negative: Yes Physical Exam Triage Information Reviewed: Yes Appearance: Well-Appearing, No Pain Distress, Well-Nourished Vital Signs: Initial Vital Signs Temp 98.4 F 11/16/17 15:51 Pulse 71 11/16/17 15:51 Resp 20 11/16/17 15:51 BP 139/88 11/16/17 15:51 Pulse Ox 98 11/16/17 15:51 Vital Signs Reviewed: Yes Eyes: Positive: Conjunctiva Clear ENT: Positive: Hearing grossly normal, Pharynx normal, TMs normal Neck: Positive: Supple, Nontender, No Lymphadenopathy Respiratory Exam: Normal Cardiovascular Exam: Normal Abdomen Description: Positive: Soft Musculoskeletal: Positive: No Edema Neurological: Positive: Alert Psychological: Positive: Age Appropriate Behavior Skin: Negative: rashes UC Diagnostic Evaluation - Laboratory O2 Sat by Pulse Oximetry: 98 Respiratory Course/Dx - Differential Dx/Diagnosis Provider Diagnoses: ACUTE SINUSITIS Discharge - Sign-Out/Discharge Documenting (check all that apply): Patient Departure All imaging exams completed and their final reports reviewed: No Studies - Discharge Plan Condition: Stable Disposition: HOME Prescriptions: Doxycycline Monohydrate 1 cap PO BID #20 cap Patient Education Materials: Sinusitis (ED) Referrals: Fab Huynh MD [Primary Care Provider] - If Needed Additional Instructions: YOUR SYMPTOMS MAY BE VIRALLY MEDIATED BUT GIVEN THE LENGTH OF TIME YOU HAVE BEEN ILL WE WILL COVER YOU WITH ANTIBIOTICS. IF YOU START THE MEDICINE BE SURE TO TAKE IT FOR THE FULL COURSE. REST, HYDRATE, OTC MEDS NEEDED. SEEK FOLLOW- UP WITH YOUR PCP IF YOU ARE NOT IMPROVING OVER THE NEXT 1-2 WEEKS. USE OTC AFRIN FOR NASAL CONGESTION. 2 SPRAYS IN EACH NOSTRIL TWICE DAILY NEEDED. DO NOT USE FOR MORE THAN 3-4 DAYS IN A ROW TO PREVENT DEVELOPING REBOUND CONGESTION. - Billing Disposition and Condition Condition: STABLE Disposition: Home
== END 2017-11-16 16:53 | disposition home or self-care (01) ==
LOC: UCEAST 15:11
DX: J01.90 Acute sinusitis, unspecified (principal); F17.210 Nicotine dependence, cigarettes, uncomplicated
CPT/HCPCS: 99212; G0463

== ENCOUNTER 2018-05-15 15:22 | Emergency (ER) | payer OTHER ==
[2018-05-15 15:34] VITALS: BP 136/75
--- NOTE | 2018-05-15 16:32 | UC ---
Skin Complaint HPI - HPI Summary HPI Summary: Pt c/o of tender lump in right lateral lower back that began ~ 4 months ago. Pt noticed a non tender "mass" in left lower, lateral back that is moveable that has begun to become tender over the last week. Denies injury or recent illness - History of Current Complaint Chief Complaint: UCSkin Time Seen by Provider: 05/15/18 16:14 Stated Complaint: LUMP ON BACK Hx Obtained From: Patient Hx Last Menstrual Period: na ?: No Onset/Duration: Gradual Onset, Lasting Weeks - 4 motnhs, Still Present Skin Exposure Onset/Duration: Weeks Ago Timing: Constant Onset Severity: Mild Current Severity: Mild Pain Intensity: 2 Location: Discrete - left lower lateral back Character: Pain Aggravating Factor(s): Touch Alleviating Factor(s): Nothing Associated Signs & Symptoms: Positive: Tenderness - Allergy/Home Medications Allergies/Adverse Reactions: Allergies Allergy/AdvReac Type Severity Reaction Status Date / Time metronidazole [From Flagyl] Allergy Intermediate Rash Verified 05/15/18 15:35 Penicillins Allergy Intermediate Rash Verified 05/15/18 15:35 Sulfa (Sulfonamide Allergy See Comment Verified 05/15/18 15:35 Antibiotics) Home Medications: Home Medications Cetirizine HCl 5 mg PO DAILY WITH MEAL 05/15/18 [History Confirmed 05/15/18] Loratadine [Claritin] 10 mg PO DAILY WITH MEAL 05/15/18 [History Confirmed 05/15] PMH/Surg Hx/FS Hx/Imm Hx Previously Healthy: Yes Other History Of: Negative For: HIV, Hepatitis B, Hepatitis C - Surgical History Surgical History: Yes Surgery Procedure, Year, and Place: TUBAL, 2008, [id number], TONGUE SURGERY, [facility], uterine ablation NVD - Family History Known Family History: Positive: Cardiac Disease, Hypertension, Other - Breast CA (maternal aunt and maternal grandmother) - Social History Occupation: Employed Full-time Lives: With Family Alcohol Use: Occasionally Substance Use Type: None Smoking Status (MU): Former Smoker Type: Cigarettes Length of Time of Smoking/Using Tobacco: 20 years When Did the Patient Quit Smoking/Using Tobacco: 2007 Household Exposure Type: Cigars - Immunization History Most Recent Influenza Vaccination: Fall 2016 Review of Systems All Other Systems Reviewed And Are Negative: Yes Constitutional: Positive: Negative Skin: Positive: Other - tender, soft tissue mass Eyes: Positive: Negative ENT: Positive: Negative Respiratory: Positive: Negative Cardiovascular: Positive: Negative Gastrointestinal: Positive: Negative Genitourinary: Positive: Negative Motor: Positive: Negative Neurovascular: Positive: Negative Musculoskeletal: Positive: Negative Neurological: Positive: Negative Psychological: Positive: Negative Is Patient Immunocompromised?: No Physical Exam Triage Information Reviewed: Yes Appearance: Well-Appearing Vital Signs: Initial Vital Signs Temp 98.1 F 05/15/18 15:30 Pulse 70 05/15/18 15:30 Resp 18 05/15/18 15:30 BP 136/75 05/15/18 15:30 Pulse Ox 99 05/15/18 15:30 Vital Signs Reviewed: Yes Eye Exam: Normal ENT Exam: Normal Dental Exam: Normal Neck exam: Normal Respiratory Exam: Normal Cardiovascular Exam: Normal Musculoskeletal Exam: Normal Neurological Exam: Normal Psychological Exam: Normal Skin Exam: Other - left lateral lower back, palpable soft cylinder shaped mass ~ 3cm X 2 cm moveable mass that pt c/ of tenderness during exam. mass is palpable ~ 2 cm depth. Course/Dx - Course Course Of Treatment: I discussed the need to follow up with PCP as soon as possible. Pt verbalized understanding and agreed to plan of care. - Differential Diagnoses - Skin Complaint Differential Diagnoses: Abscess, Other - lipoma - Diagnoses Provider Diagnosis: Soft tissue mass Discharge - Sign-Out/Discharge Documenting (check all that apply): Patient Departure All imaging exams completed and their final reports reviewed: No Studies - Discharge Plan Condition: Stable Disposition: HOME Patient Education Materials: Soft Tissue Mass (ED) Referrals: Fab Huynh MD [Primary Care Provider] - As Soon As Possible Additional Instructions: Please follow up immediately with your PCP. If symptoms worsen please seek care at the closest emergency room. - Billing Disposition and Condition Condition: STABLE Disposition: Home
== END 2018-05-15 16:40 | disposition home or self-care (01) ==
LOC: UCEAST 15:22
DX: M79.89 Other specified soft tissue disorders (principal); Z88.0 Allergy status to penicillin; Z88.2 Allergy status to sulfonamides; Z88.1 Allergy status to other antibiotic agents
CPT/HCPCS: 99211; G0463

== ENCOUNTER 2018-08-26 11:06 | Emergency (ER) | payer OTHER ==
[2018-08-26 11:25] VITALS: BP 142/85
--- NOTE | 2018-08-26 12:39 | UC ---
Throat Pain/Nasal Damien HPI - HPI Summary HPI Summary: 47-year-old female presents with 3-4 day history of nasal congestion, sinus pressure, bilateral ear fullness, sore throat, and occasional cough. Has history of seasonal allergies. States she has been using her fluticasone nasal spray and certirizine without relief. Denies fever, chills, dysphagia, chest pain, shortness of breath, abdominal pain, nausea, or vomiting. - History of Current Complaint Chief Complaint: UCRespiratory Stated Complaint: CONGESTION Time Seen by Provider: 08/26/18 12:24 Hx Obtained From: Patient Hx Last Menstrual Period: na Pain Intensity: 2 - Allergies/Home Medications Allergies/Adverse Reactions: Allergies Allergy/AdvReac Type Severity Reaction Status Date / Time metronidazole [From Flagyl] Allergy Intermediate Rash Verified 08/26/18 11:24 Penicillins Allergy Intermediate Rash Verified 08/26/18 11:24 Sulfa (Sulfonamide Allergy See Comment Verified 08/26/18 11:24 Antibiotics) Home Medications: Home Medications Calcium Carbonate/Vitamin D3 [Calcium 500-Vit D3 600 Tablet] 1 tab PO DAILY 06/11 [History Confirmed 08/26/18] Cetirizine* [ZyrTEC 10 MG TAB*] 1 tab PO DAILY 08/26/18 [History Confirmed 08/26] Eucalyptus/Menthol [Cough Drops] 1 tab PO ONCE PRN 08/26/18 [History Confirmed 08/26/18] Ibuprofen [Wal-Profen] 800 mg PO ONCE PRN 08/26/18 [History Confirmed 08/26/18] Lisinopril 5 mg PO DAILY 08/26/18 [History Confirmed 08/26/18] Phenol/Glycerin [Chloraseptic [place]] 1 spray INH ONCE PRN 08/26/18 [History Confirmed 08/26/18] PMH/Surg Hx/FS Hx/Imm Hx - Additional Past Medical History Additional PMH: Environmental allergies Endocrine History: Hypothyroidism Cardiovascular History: Hypertension GI/ History: Gastroesophageal Reflux Psychological History: Depression Other History Of: Negative For: HIV, Hepatitis B, Hepatitis C - Surgical History Surgical History: Yes Surgery Procedure, Year, and Place: TUBAL, 2008, [id number], TONGUE SURGERY, [facility], uterine ablation NVD - Family History Known Family History: Positive: Cardiac Disease, Hypertension, Other - Breast CA (maternal aunt and maternal grandmother) - Social History Occupation: Employed Full-time Lives: With Family Alcohol Use: Occasionally Substance Use Type: None Smoking Status (MU): Former Smoker Type: Cigarettes Length of Time of Smoking/Using Tobacco: 20 years When Did the Patient Quit Smoking/Using Tobacco: 2007 Household Exposure Type: Cigars - Immunization History Most Recent Influenza Vaccination: Fall 2016 Review of Systems All Other Systems Reviewed And Are Negative: Yes Constitutional: Negative: Fever, Chills Skin: Negative: Rash Eyes: Negative: Drainage, Eye Redness ENT: Positive: Sore Throat, Ear Ache, Nasal Discharge, Sinus Congestion, Sinus Pain/Tenderness Respiratory: Positive: Cough. Negative: Shortness Of Breath Cardiovascular: Negative: Palpitations, Chest Pain Gastrointestinal: Negative: Abdominal Pain, Vomiting, Diarrhea, Nausea Genitourinary: Positive: Negative Musculoskeletal: Positive: Negative Neurological: Positive: Negative Is Patient Immunocompromised?: No Physical Exam - Summary Physical Exam Summary: GENERAL APPEARANCE: Well developed, obese, alert and cooperative, and appears to be in no acute distress. EYES: Conjunctiva clear. No drainage. EARS: External auditory canals clear, bilateral TM's dull with air bubbles, no erythema, hearing grossly intact. NOSE: Moderate-severe nasal congestion with mucosal erythema and edema. Maxillary sinus tenderness. THROAT: Pharyngeal cobblestoning. No tonsilar inflammation, swelling, exudate, or lesions. Uvula midline. NECK: Neck supple, non-tender without lymphadenopathy. CARDIAC: Normal S1 and S2. No S3, S4 or murmurs. Rhythm is regular. There is no peripheral edema, cyanosis or pallor. Extremities are warm and well perfused. Capillary refill is less than 2 seconds. Peripheral pulses intact. LUNGS: Clear to auscultation without rales, rhonchi, wheezing or diminished breath sounds. Non-productive cough. ABDOMEN: Positive bowel sounds. Soft, nondistended, nontender. No guarding or rebound. No masses or hepatosplenomegally. MUSKULOSKELETAL: ROM intact to all extremities. No joint erythema or tenderness. Normal muscular development. Normal gait. SKIN: Skin normal color, texture and turgor with no lesions or eruptions. Triage Information Reviewed: Yes Vital Signs: Initial Vital Signs Temp 98.1 F 08/26/18 11:21 Pulse 63 08/26/18 11:21 Resp 18 08/26/18 11:21 BP 142/85 08/26/18 11:21 Pulse Ox 98 08/26/18 11:21 Vital Signs Reviewed: Yes Throat Pain/Nasal Course/Dx - Course Course Of Treatment: 47-year-old female presents with 3-4 day history of nasal congestion, sinus pressure, bilateral ear fullness, sore throat, and occasional cough. Has history of seasonal allergies. States she has been using her fluticasone nasal spray and certirizine without relief. Denies fever, chills, dysphagia, chest pain, shortness of breath, abdominal pain, nausea, or vomiting. Afebrile. Vital signs stable. Patient had moderate-severe nasal congestion with mucosal erythema and edema, bilaterally dull TM's with air bubbles, pharyngeal cobblestoning without cervical lymphadenopathy, clear bilateral lung sounds with a non-productive cough, and otherwise unremarkable exam. Discussed with patient that since her symptoms have not improved with her allergy medication that she likely has a viral URI and am recommending that she add an OTC decongestant and saline rinses to her treatment regimen. She is to follow up with her PCP in 3-5 days if symptoms persist. Anticipatory guidance and warning symptoms were reviewed with the patient. Verbalizes understanding and agrees with POC. - Differential Dx/Diagnosis Differential Diagnosis/HQI/PQRI: Pharyngitis, Sinusitis, Tonsillitis, URI Provider Diagnosis: Viral URI Discharge - Sign-Out/Discharge Documenting (check all that apply): Patient Departure All imaging exams completed and their final reports reviewed: No Studies - Discharge Plan Condition: Stable Disposition: HOME Patient Education Materials: Upper Respiratory Infection (ED) Forms: *Work Release Referrals: Fab Huynh MD [Primary Care Provider] - 3 Days Additional Instructions: Your history and exam are consistent with a viral upper respiratory infection. Viral infections do not respond to antibiotics and are limited to the treatment of symptoms. Viral infections typically run their course in 7-10 days. Use a saline rinse kit such as Neti Pot or NeilMed at least twice a day to help thin secretions and promote drainage of the sinuses. Continue to use your fluticasone (Flonase) nasal spray 2 sprays each nostril once daily. I would recommend starting an over the counter decongestant such as Sudafed to help relieve the congestion. Take over the counter acetaminophen (Tylenol) or ibuprofen (Advil, Motrin) according to directions as needed for pain or fever. Use salt water gargles several times a day if you have a sore throat. You may continue to use Chloraseptic spray or Cepacol lonzenges according to directions which contain a numbing medication and can provide some temporary relief from your sore throat. Follow up with your primary care provider in 3-5 days if symptoms persist. Seek immediate medical attention in the emergency room if you have fever greater than 100.5 F despite taking acetaminophen or ibuprofen, have chest pain , difficulty breathing, are unable to swallow, or have any worsening of symptoms. - Billing Disposition and Condition Condition: STABLE Disposition: Home
== END 2018-08-26 12:55 | disposition home or self-care (01) ==
LOC: UCEAST 11:06
DX: J06.9 Acute upper respiratory infection, unspecified (principal); Z88.0 Allergy status to penicillin; Z88.2 Allergy status to sulfonamides; Z88.1 Allergy status to other antibiotic agents; Z87.891 Personal history of nicotine dependence
CPT/HCPCS: 99211; G0463

== ENCOUNTER 2018-09-16 16:12 | Emergency (ER) | payer OTHER ==
[2018-09-16 17:59] VITALS: BP 119/57
--- NOTE | 2018-09-16 18:06 | UC ---
Respiratory Complaint HPI - HPI Summary HPI Summary: 48 y/o female presents to the urgent care c/o productive cough for the past 3 weeks. Pt report Hx of recurrent sinusitis. Pt states was seen here at the clinic about 3 weeks and Dx w/ rhinosinusitis and advised symptomatic treatment. However symptoms didn't improve and are moving to her chest. Pt hasn 't been able to sleep well due to cough for the past week. Phlegm is now green and mild wheezing since yesterday. She has left side rib and back pain when she coughs. Moderate PND. pt denies fever, but has had chills at night. Pt denies SOB, chest pain,palpitation, abdominal pain, N/V/D, SMITH,neck pain, - History of Current Complaint Chief Complaint: UCGeneralIllness Stated Complaint: COUGH Time Seen by Provider: 09/16/18 18:02 Hx Obtained From: Patient Hx Last Menstrual Period: had uterine ablation 5 years ago ?: No Onset/Duration: Gradual Onset, Lasting Weeks - 3 weeks Timing: Intermittent Episodes Severity Initially: Mild Severity Currently: Moderate Pain Intensity: 6 Pain Scale Used: 0-10 Numeric Character: Cough: Productive, Sputum Description: - yellowish Aggravating Factors: Recumbent Position Associated Signs And Symptoms: Positive: Chills, Pleuritic Chest Pain, Wheezing - mild, URI, Nasal Congestion, Sinus Discomfort - Risk Factors Pulmonary Embolism Risk Factors: Negative Cardiac Risk Factors: Negative Pseudomonas Risk Factors: Negative Tuberculosis Risk Factors: Negative - Allergies/Home Medications Allergies/Adverse Reactions: Allergies Allergy/AdvReac Type Severity Reaction Status Date / Time metronidazole [From Flagyl] Allergy Intermediate Rash Verified 09/16/18 17:59 Penicillins Allergy Intermediate Rash Verified 09/16/18 17:59 Sulfa (Sulfonamide Allergy See Comment Verified 09/16/18 17:59 Antibiotics) Home Medications: Home Medications Albuterol HFA INHALER* [Ventolin HFA Inhaler*] 2 puff INH Q4H PRN 09/16/18 [ History Confirmed 09/16/18] PMH/Surg Hx/FS Hx/Imm Hx Previously Healthy: Yes Endocrine History: Hypothyroidism Cardiovascular History: Hypertension GI/ History: Gastroesophageal Reflux Psychological History: Anxiety, Depression Other History Of: Negative For: HIV, Hepatitis B, Hepatitis C - Surgical History Surgical History: Yes Surgery Procedure, Year, and Place: TUBAL, 2009, [id number], TONGUE SURGERY, [facility], uterine ablation 2012 - Family History Known Family History: Positive: Cardiac Disease, Hypertension, Other - Breast CA (maternal aunt and maternal grandmother) - Social History Occupation: Employed Full-time Lives: With Family Alcohol Use: Rare Substance Use Type: None Smoking Status (MU): Former Smoker Type: Cigarettes Length of Time of Smoking/Using Tobacco: 20 years When Did the Patient Quit Smoking/Using Tobacco: 2007 Household Exposure Type: Cigars - Immunization History Most Recent Influenza Vaccination: Fall 2016 Review of Systems All Other Systems Reviewed And Are Negative: Yes Constitutional: Positive: Chills, Fatigue Skin: Positive: Negative Eyes: Positive: Negative ENT: Positive: Nasal Discharge - yellowish, Sinus Congestion, Sinus Pain/ Tenderness, Other - PND Respiratory: Positive: Cough - productive cough w/ yellowish phlegm, Other - mild wheezing Cardiovascular: Positive: Negative Gastrointestinal: Positive: Negative Genitourinary: Positive: Negative Motor: Positive: Negative Neurovascular: Positive: Negative Musculoskeletal: Positive: Negative Neurological: Positive: Negative Psychological: Positive: Negative Is Patient Immunocompromised?: No Physical Exam - Summary Physical Exam Summary: Vital Signs Reviewed: Yes General: well developed, well nourished female sitting in the examining table w/ o any apparent distress Eyes: Positive: Conjunctiva Clear - PERRLA, EOMI, fundi grossly normal ENT: Positive: Normal ENT inspection, Hearing grossly normal, Pharynx normal, Nasal congestion - edematous and erythematous nasal mucosa, Nasal drainage - yellowish drainage, TMs normal. Negative: Tonsillar swelling, Tonsillar exudate Neck: Positive: Supple, Nontender, No Lymphadenopathy Respiratory: no orthopnea or dyspnea. Able to speak in full sentences, no retractions or accessory muscle use, no tripod position, stridor, or head bobbing. Positive breath sounds bilaterally. diffuse scattered rhonchi on both lungs and mild posterior upper lung w/ mild wheezing, no crackles or rales. Cardiovascular: Positive: RRR, No Murmur, Pulses Normal, Brisk Capillary Refill Abdomen Description: Positive: Nontender, No Organomegaly, Soft. Negative: CVA Tenderness (R), CVA Tenderness (L) Bowel Sounds: Positive: Present Musculoskeletal Exam: Normal Musculoskeletal: Positive: Strength Intact, ROM Intact, No Edema Neurological Exam: Normal Psychological Exam: Normal Skin Exam: Normal Triage Information Reviewed: Yes Vital Signs: Initial Vital Signs Temp 98.7 F 09/16/18 17:55 Pulse 71 09/16/18 17:55 Resp 16 09/16/18 17:55 BP 119/57 09/16/18 17:55 Pulse Ox 97 09/16/18 17:55 Respiratory Course/Dx - Course Course Of Treatment: 48 y/o female presents to the urgent care c/o productive cough for the past 3 weeks. Pt report Hx of recurrent sinusitis. Pt states was seen here at the clinic about 3 weeks and Dx w/ rhinosinusitis and advised symptomatic treatment. However symptoms didn't improve and are moving to her chest. Pt hasn 't been able to sleep well due to cough for the past week. Phlegm is now green and mild wheezing since yesterday. She has left side rib and back pain when she coughs. Moderate PND. pt denies fever, but has had chills at night. Pt denies SOB, chest pain,palpitation, abdominal pain, N/V/D, SMITH,neck pain.Hx obtained. PT is hemodynamically stable, w/ diffuse scattered rhonchi and mild RT posterior upper lung w/ mild wheezing, no crackles or rales on examination. O2Sat: 97%.. Chest X-ray ordered: impression: no acute cardiopulmonary disease observed. final radiology report will be done tomorrow. Pt will be ntified of any abnormal result. Duoneb treatment ordered and given by nurse. Pt tolerated well medications and her lungs improved. Pt states feeling better. Pt will be Tx for Acute Bronchitis, Rx Doxycycline PO , givne apacer to use w/ her Albuterol Inhaler and Tessalon tabs as directed below to alleviate cough. Strongly advised to f/u with her PCP for further management. She may be developing Asthma or COPD. d/C instructions explained. Pt understood and agreed with D/C instructions and left the clinic hemodynamically stable. - Differential Dx/Diagnosis Differential Diagnosis/HQI/PQRI: Asthma, Bronchitis, Exacerbation Of COPD, Lower Resp Infection, Sinusitis, Other - pneumonia Provider Diagnosis: Acute bronchitis, Wheezing Discharge - Sign-Out/Discharge Documenting (check all that apply): Patient Departure - D/c home All imaging exams completed and their final reports reviewed: No - Discharge Plan Condition: Stable Disposition: HOME Prescriptions: Benzonatate CAP* [Tessalon 100 MG CAP*] 100 mg PO TID #21 cap DOXYcycline CAP(*) [DOXYcycline 100MG CAP(*)] 100 mg PO BID #20 cap Patient Education Materials: Acute Bronchitis (ED), Wheezing (ED) Forms: *Work Release Referrals: Fab Huynh MD [Primary Care Provider] - 3 Days Additional Instructions: 1-Please take full course of antibiotic to avoid resistance. Take yogurts w/ probiotic or culturelle to protect your GI system 2-Take Tessalon PO tabs as directed and use the albuterol inhaler to alleviate cough. Increase fluid intake, rest and eat well. 3- If symptoms do not improve or worsen or your develop SOB with fever and severe wheezing or chest pain please go immediately to the ER further evaluation and treatment. 4- F/u with your PCP in 3 days for further management on you may be developing asthma - Billing Disposition and Condition Condition: STABLE Disposition: Home - Attestation Statements Provider Attestation: Per institutional requirements, I have reviewed the chart, however, I was not consulted specifically or made aware of this patient by the midlevel provider. I did not personally evaluate, interact with , or disposition this patient.
[2018-09-16] MEDS ORDERED: Ibuprofen TAB* 400 MG PO ONE (18:26)
[2018-09-16] MEDS ORDERED: Albuterol/Ipratropium NEB.SOL* Albuterol 2.5 MG/Ipratropium 0.5 MG 3 ML INH ONE (18:27)
--- NOTE | 2018-09-17 12:30 | UC ---
- Progress Note Progress Note: chest xray report : IMPRESSION: NO EVIDENCE FOR ACTIVE CARDIOPULMONARY DISEASE. Course/Dx - Diagnoses Provider Diagnoses: Acute bronchitis, Wheezing Discharge - Sign-Out/Discharge Documenting (check all that apply): Patient Departure All imaging exams completed and their final reports reviewed: Yes - Discharge Plan Condition: Stable Disposition: HOME Prescriptions: Benzonatate CAP* [Tessalon 100 MG CAP*] 100 mg PO TID #21 cap DOXYcycline CAP(*) [DOXYcycline 100MG CAP(*)] 100 mg PO BID #20 cap Patient Education Materials: Acute Bronchitis (ED), Wheezing (ED) Forms: *Work Release Referrals: Fab Huynh MD [Primary Care Provider] - 3 Days Additional Instructions: 1-Please take full course of antibiotic to avoid resistance. Take yogurts w/ probiotic or culturelle to protect your GI system 2-Take Tessalon PO tabs as directed and use the albuterol inhaler to alleviate cough. Increase fluid intake, rest and eat well. 3- If symptoms do not improve or worsen or your develop SOB with fever and severe wheezing or chest pain please go immediately to the ER further evaluation and treatment. 4- F/u with your PCP in 3 days for further management on you may be developing asthma - Billing Disposition and Condition Condition: STABLE Disposition: Home
== END 2018-09-16 19:25 | disposition home or self-care (01) ==
LOC: UCEAST 16:12
DX: J20.9 Acute bronchitis, unspecified (principal); I10 Essential (primary) hypertension; Z87.891 Personal history of nicotine dependence
CPT/HCPCS: 71046; 99212; A9270-GY; G0463

== ENCOUNTER 2019-06-10 12:19 | Emergency (ER) | payer BC ==
--- OUTSIDE RECORDS SUMMARY | 2019-06-10 13:43 | XMS REPORT | Continuity of Care Document ---
:1970 External Reference #:[id number] Author Name Marychuy Acosta, DO Address [address] [place] [address] Problems Active Problems Provider Date Essential hypertension Onset: 04/19/2018 Chronic kidney disease Onset: 02/01/2018 Bronchospasm Onset: 04/11/2017 Obstructive sleep apnea syndrome Fab Huynh MD Onset: 12/30/2018 Social History Type Date Description Comments Sex Unknown Tobacco Use Start: Unknown End: Patient is a former smoker Smoking Status Reviewed: 05/09/19 Patient is a former smoker Allergies, Adverse Reactions, Alerts Active Allergies Reaction Severity Comments Date Bactrim Allergic urticaria Moderate 11/29/2018 Penicillin Allergic urticaria 11/29/2018 Flagyl itchy rash 11/29/2018 Medications Active Medications SIG Qnty Indications Ordering Provider Date Dexamethasone Sodium 3 drops each ear 5ml Marychuy Acosta, 05/09/2019 Phosphate twice daily DO 0.1% Solution Omeprazole Take One Capsule 30caps Marychuy Eladiow, 07/15/2018 20mg By Mouth Every DO Capsules DR Day Fluticasone 2 sprays daily 16units Unknown 04/19/2018 Propionate Nasal 50mcg/Act Suspension Lisinopril Take One Tablet 90tabs Marychuy Karnow, 04/19/2018 5mg Tablets By Mouth Every DO Day Claritin 1 daily Oral 30tabs Unknown 04/19/2018 10mg Tablets Blood Pressure 1 External; 1units Unknown 02/01/2018 Monitor Talking large BP cuff. Auto-Inflation Med Dx: elevated Cuff blood pressure Misc Levothyroxine Sodium Take One Tablet 90tabs Marychuy Celestinonow, 11/28/2017 By Mouth Every DO 100mcg Tablets Day Escitalopram Oxalate Take One Tablet 30tabs Marychuy Acosta, 07/12/2017 By Mouth Once DO 20mg Tablets Daily Multiple Vitamin 1 daily Oral 30tabs Unknown 11/24/2016 Tablets Immunizations CPT Code Status Date Vaccine Lot # [id number] Given 01/06/2019 Flu < 65 years 60468 Given 01/28/2018 Influenza Virus Vaccine, Quadrivalent, Split, Im Use 0.25ML 91437 Given 01/28/2018 Influenza Virus Vaccine, Quadrivalent, Split, Im Use 0.25ML 38618 Given 01/28/2018 Influenza Virus Vaccine, Quadrivalent, Split, Im Use 0.25ML 34709 Given 01/28/2018 Flu < 65 years 35400 Given 01/28/2018 Influenza Virus Vaccine, Quadrivalent, Split, Preservative Free 82010 Given 01/28/2018 Flumist 52008 Given 01/28/2018 Flu High Dose 19932 Given 01/28/2018 Influenza Virus Vaccine, Split, Preserv Free, Intradermal Use 08931 Given 11/24/2016 Influenza Virus Vaccine, Split, Preserv Free, Intradermal Use 72485 Given 11/24/2016 Flu High Dose 96084 Given 11/24/2016 Flumist 54591 Given 11/24/2016 Influenza Virus Vaccine, Quadrivalent, Split, Preservative Free 05091 Given 11/24/2016 Flu < 65 years 68243 Given 11/24/2016 Influenza Virus Vaccine, Quadrivalent, Split Virus, Im Use 0.5ML 86153 Given 12/19/2013 Influenza Virus Vaccine, Quadrivalent, Split Virus, Im Use 0.5ML 24748 Given 12/19/2013 Flu < 65 years 86182 Given 12/19/2013 Influenza Virus Vaccine, Quadrivalent, Split, Preservative Free 92435 Given 12/19/2013 Flumist 12122 Given 12/19/2013 Flu High Dose 64737 Given 12/16/2012 Influenza Virus Vaccine Split Virus Intramuscular Use 0.5ML 19566 Given 12/16/2012 Flu High Dose 02416 Given 12/16/2012 Flumist 70310 Given 12/16/2012 Influenza Virus Vaccine, Quadrivalent, Split, Preservative Free 76812 Given 12/16/2012 Flu < 65 years 56778 Given 12/16/2012 Influenza Virus Vaccine, Quadrivalent, Split, Im Use 0.25ML 47232 Given 12/16/2012 Influenza Virus Vaccine, Quadrivalent, Split, Im Use 0.25ML 52940 Given 12/16/2012 Influenza Virus Vaccine, Quadrivalent, Split, Im Use 0.25ML 84746 Given 12/16/2012 Influenza Virus Vaccine, Quadrivalent, Split, Im Use 0.25ML 08488 Given 12/07/2011 Influenza Virus Vaccine Split Virus Intramuscular Use 0.5ML 79700 Given 12/07/2011 Flu High Dose 50922 Given 12/07/2011 Flumist 41698 Given 12/07/2011 Influenza Virus Vaccine, Quadrivalent, Split, Preservative Free 83066 Given 12/07/2011 Flu < 65 years 37539 Given 12/07/2011 Influenza Virus Vaccine, Quadrivalent, Split, Im Use 0.25ML 98944 Given 12/07/2011 Influenza Virus Vaccine, Quadrivalent, Split, Im Use 0.25ML 54102 Given 12/07/2011 Influenza Virus Vaccine, Quadrivalent, Split, Im Use 0.25ML 73446 Given 12/07/2011 Influenza Virus Vaccine, Quadrivalent, Split, Im Use 0.25ML 07962 Given 11/24/2010 Influenza Virus Vaccine, Quadrivalent, Split, Im Use 0.25ML 94750 Given 12/29/2009 Influenza Virus Vaccine, Quadrivalent, Split, Im Use 0.25ML 64830 Given 04/28/2009 Hep B 11-15yr, Recombivax 1.0ml dose only 48459 Given 04/28/2009 Tdap - Boostrix/Adacel 64845 Given 04/28/2009 Tdap - Boostrix/Adacel 60908 Given 04/28/2009 Tdap - Boostrix/Adacel 21969 Given 01/17/2005 Hep B 11-15yr, Recombivax 1.0ml dose only 85464 Given 07/20/2004 MMR Vaccine 02808 Given 07/15/2004 Hep B 11-15yr, Recombivax 1.0ml dose only Vital Signs Date Vital Result Comment 05/09/2019 9:08am BP Systolic 118 mmHg BP Diastolic 62 mmHg Height 65.5 inches 5'5.50" Weight 239.00 lb Heart Rate 68 /min Body Temperature 98.3 F O2 % BldC Oximetry 98 % BMI (Body Mass Index) 39.2 kg/m2 10/04/2018 10:08am BP Systolic 110 mmHg Height 65.25 inches 5'5.25" Weight 242.00 lb Heart Rate 72 /min Body Temperature 98.0 F O2 % BldC Oximetry 98 % BMI (Body Mass Index) 39.96 kg/m2 Results Description No Information Available Procedures Description No Information Available Medical Devices Description No Information Available Encounters Type Date Location Provider Dx Diagnosis Office Visit 05/09/2019 [facility] Marychuy Acosta DO I10 Essential ( primary) 9:15a hypertension L29.9 Pruritus, unspecified F43.21 Adjustment disorder with depressed mood Z12.31 Encntr screen mammogram for malignant neoplasm of breast Assessments Date Code Description Provider 05/09/2019 I10 Essential (primary) hypertension Marychuy Acosta, DO 05/09/2019 L29.9 Pruritus, unspecified Marychuy Karnow, DO 05/09/2019 F43.21 Adjustment disorder with depressed mood Marychuy Karneenaantonio, DO 05/09/2019 Z12.31 Encounter for screening mammogram for Marychuy KarDO mendoza malignant neoplasm of breast Plan of Treatment Future Appointment(s):11/07/2019 3:00 pm - Marychuy Acosta DO at [facility] Main - Marychuy Karmendoza [id number] Essential (primary) hypertensionComments:Well controlledContinue Lisinopril at 5mg Better with treatment of the OSALabs in a few quyoufO39.9 Pruritus, unspecifiedComments:Itchy ears with dry flakey skin like eczematous changes - will try topical steroid vrtneJ41.21 Adjustment disorder with depressed moodComments:Supportive listening They are also having a hard time affording their food - will see if field case manager can be helpful at allZ12.31 Encounter for screening mammogram for malignant neoplasm of breastNew Xrays:Bilat Mammo Screening, Ordered: 05/09/19AllNew Medication:Dexamethasone Sodium Phosphate 0.1 % - 3 drops each ear twice daily Functional Status Description No Information Available Mental Status Description No Information Available Referrals Description No Information Available
--- NOTE | 2019-06-10 13:55 | UC ---
FLU HPI - HPI Summary HPI Summary: 48 yo female presents with flu-like symptoms. She tells me that for the last 3- 4 days she has had fatigue, body aches, cough, sinus congestion, and fever around 101F. She has been taking coricidin with little relief. She works in a [employer]. She did get a flu shot this year. She has a hx of asthma and has an albuterol inhaler at home, but has not been using this. Denies SOB, chest pain, abdominal pain, vomiting, dysuria. No recent travel or known COVID exposure. - History of Current Complaint Chief Complaint: UCRespiratory Stated Complaint: FEVER COUGH SINUS ISSUE Time Seen by Provider: 06/10/19 13:54 Hx Obtained From: Patient Hx Last Menstrual Period: n/a Onset/Duration: Sudden Onset Severity Currently: Mild Severity Initially: Mild Pain Intensity: 1 Pain Scale Used: 0-10 Numeric - Allergy/Home Medications Allergies/Adverse Reactions: Allergies Allergy/AdvReac Type Severity Reaction Status Date / Time metronidazole [From Flagyl] Allergy Intermediate Rash Verified 06/10/19 13:51 Penicillins Allergy Intermediate Rash Verified 06/10/19 13:51 Sulfa (Sulfonamide Allergy See Comment Verified 06/10/19 13:51 Antibiotics) Home Medications: Home Medications Multivitamin [Multivitamins] 1 cap PO DAILY 05/30/14 [History Confirmed 06/10/19 ] Omeprazole CAP (NF) [Prilosec CAP* 20 MG] 20 mg PO DAILY 05/30/14 [History Confirmed 06/10/19] Escitalopram Oxalate [Lexapro 20 mg] 20 mg PO DAILY 12/31/14 [History Confirmed 06/10/19] Levothyroxine Sodium [Levo-T] 100 mcg PO DAILY WITH MEAL 04/27/17 [History Confirmed 06/10/19] Fluticasone NASAL SPRAY 50MCG* [Flonase NASAL SPRAY 50MCG*] 2 spray BOTH NARES DAILY #1 btl 10/06/17 [Rx Confirmed 06/10/19] Calcium Carbonate/Vitamin D3 [Calcium 500-Vit D3 600 Tablet] 1 tab PO DAILY 06/11 [History Confirmed 06/10/19] Cetirizine* [ZyrTEC 10 MG TAB*] 1 tab PO DAILY 08/26/18 [History Confirmed 06/09] lisinopriL [Lisinopril] 5 mg PO DAILY 08/26/18 [History Confirmed 06/10/19] Albuterol HFA INHALER* [Ventolin HFA Inhaler*] 2 puff INH Q4H PRN 09/16/18 [ History Confirmed 06/10/19] Guaifenesin/Dextromethorphan [Coricidin Hbp Chest Damien-Cough] 2 each PO PRN [History] Oseltamivir CAP* [Tamiflu CAP*] 75 mg PO BID #10 cap 06/10/19 [Rx] PMH/Surg Hx/FS Hx/Imm Hx Endocrine History: Hypothyroidism Cardiovascular History: Hypertension Psychological History: Anxiety, Depression Other History Of: Negative For: HIV, Hepatitis B, Hepatitis C - Surgical History Surgical History: Yes Surgery Procedure, Year, and Place: TUBAL, 2008, [id number], TONGUE SURGERY, [facility], uterine ablation 2012 - Family History Known Family History: Positive: Cardiac Disease, Hypertension, Other - Breast CA (maternal aunt and maternal grandmother) - Social History Lives: With Family Alcohol Use: Rare Substance Use Type: None Smoking Status (MU): Former Smoker Type: Cigarettes Length of Time of Smoking/Using Tobacco: 20 years When Did the Patient Quit Smoking/Using Tobacco: 2007 Household Exposure Type: Cigars - Immunization History Most Recent Influenza Vaccination: Fall 2016 Review of Systems All Other Systems Reviewed And Are Negative: No Constitutional: Positive: Fever, Fatigue Skin: Positive: Negative Eyes: Positive: Negative ENT: Positive: Nasal Discharge, Sinus Congestion, Sinus Pain/Tenderness Respiratory: Positive: Cough Cardiovascular: Positive: Negative Gastrointestinal: Positive: Negative Physical Exam - Summary Physical Exam Summary: GENERAL: NAD. WDWN. No pain distress. SKIN: No rashes, sores, lesions, or open wounds. HEENT: Head: AT/NC Eyes: EOM intact. Conjunctiva clear without inflammation or discharge. Ears: Hearing grossly normal. TMs intact, no bulging, erythema, or edema. Nose: Nasal mucosa pink and moist. NTTP maxillary and frontal sinus. Throat: Posterior oropharynx without exudates, erythema, or tonsillar enlargement. Uvula midline. NECK: Supple. Nontender. No lymphadenopathy. CHEST: CTAB. No r/r/w. No accessory muscle use. Breathing comfortably and in no distress. CV: RRR. Pulses intact. Cap refill <2seconds NEURO: Alert. PSYCH: Age appropriate behavior. Triage Information Reviewed: Yes Vital Signs: Vital Signs: Temp Pulse Resp BP Pulse Ox 98.9 F 101 16 139/101 97 06/10/19 14:10 06/10/19 14:10 06/10/19 14:10 06/10/19 14:10 06/10/19 14:10 Laboratory Tests 06/10/19 06/10/19 14:17 14:19 Influenza B (Rapid) Positive H Group A Strep Rapid Negative Vital Signs Reviewed: Yes Diagnostics - Radiology CXR Radiology Interpretation Completed By: Radiologist Summary of Radiographic Findings: IMPRESSION: NO ACTIVE CARDIOPULMONARY DISEASE. Flu Course/Dx - Course Course Of Treatment: CXR negative. POC strep negative. POC flu positive. Rx for tamiflu. - Differential Dx/Diagnosis Provider Diagnosis: Influenza Discharge ED - Sign-Out/Discharge Documenting (check all that apply): Patient Departure All imaging exams completed and their final reports reviewed: Yes - Discharge Plan Condition: Stable Disposition: HOME Prescriptions: Oseltamivir CAP* [Tamiflu CAP*] 75 mg PO BID #10 cap Patient Education Materials: Influenza (ED) Forms: *Work Release Referrals: Fab Huynh MD [Primary Care Provider] - Additional Instructions: FLU TEST POSITIVE TODAY. CHEST X-RAY WAS NORMAL Most people with the flu recover within one to two weeks without treatment. However, serious complications of the flu can occur. Go to the ER immediately if you: -- You feel short of breath or have trouble breathing -- You have pain or pressure in your chest or stomach -- You have signs of being dehydrated, such as dizziness when standing or not passing urine -- You feel confused -- You cannot stop vomiting or you cannot drink enough fluids There are several groups of people who are at increased risk for flu complications. These include women, young children (<5 years of age and especially <2 years of age), people older than 65 years of age, and people with certain diseases such as chronic lung disease (such as asthma), heart disease, diabetes, immunosuppressing conditions (such as HIV infection or transplantation), and some other diseases. Treat symptoms Treating the symptoms of influenza can help you to feel better but will not make the flu go away faster. -- Rest until the flu is fully resolved, especially if the illness has been severe. -- Fluids Drink enough fluids so that you do not become dehydrated. One way to lab support technician if you are drinking enough is to look at the color of your urine. Normally, urine should be light yellow to nearly colorless. If you are drinking enough, you should pass urine every three to five hours. -- Acetaminophen (sample brand name: Tylenol) can relieve fever, headache, and muscle aches. Aspirin and medicines that include aspirin (eg, bismuth subsalicylate [sample brand name: Pepto-Bismol]) are not recommended for children under 18 because aspirin can lead to a serious disease called Abiodun syndrome. -- Cough medicines are not usually helpful; cough usually resolves without treatment. We do not recommend cough or cold medicine for children under age 6 years. Antiviral treatment Antiviral medicines can be used to treat or prevent influenza. When used as a treatment, the medicine does not eliminate flu symptoms, although it can reduce the severity and duration of symptoms by about one day. Not every person with influenza needs an antiviral medicine, but some people do; the decision is based upon several factors. If you are severely ill and/or have risk factors for developing complications of influenza, you will need an antiviral agent. People who are only mildly ill and have no risk factors for complications usually do not need to be treated with antiviral medication. - Billing Disposition and Condition Condition: STABLE Disposition: Home - Attestation Statements Provider Attestation: This patient was not sen by me. I was available for consult Chart reviewed [id number]
[2019-06-10 14:11] VITALS: BP 139/101
[2019-06-10 14:21] LABS: Influenza B Molecular POSITIVE (Negative)
== END 2019-06-10 15:16 | disposition home or self-care (01) ==
LOC: UCEAST 12:19
DX: J11.1 Influenza due to unidentified influenza virus with other respiratory manifestations (principal); I10 Essential (primary) hypertension; E03.9 Hypothyroidism, unspecified; F41.9 Anxiety disorder, unspecified; F32.9 Major depressive disorder, single episode, unspecified; Z79.899 Other long term (current) drug therapy; Z79.890 Hormone replacement therapy; Z87.891 Personal history of nicotine dependence; Z88.8 Allergy status to other drugs, medicaments and biological substances; Z88.0 Allergy status to penicillin; Z88.2 Allergy status to sulfonamides
CPT/HCPCS: 71046; 87651; 99212; G0463

== ENCOUNTER 2023-04-17 14:41 | Observation (INO) ==
[2023-04-17 17:13] LABS: ABS Basophils 0.1 10^3/uL (0.0-0.1); ABS Eosinophils 0.3 10^3/uL (0.0-0.5); ABS Lymphocytes 1.8 10^3/uL (1.0-4.8); ABS Monocytes 0.4 10^3/uL (0.0-0.9); ABS Neutrophils 7.4 10^3/uL (1.5-7.6); ABS Nucleated RBC 0.01 10^3/ul; Eosinophil % 2.9 %; Hematocrit 38.6 % (35-45); Hemoglobin 13.6 g/dL (11.5-14.3); Mean Corpuscular Hemoglobin 32.3 pg (27-33); Mean Corpuscular Hgb Conc 35.3 g/dL (31-36); Mean Corpuscular Volume 91.4 fL (80-97); Mean Platelet Volume 7.4 fL (7.5-11.2); Nucleated Red Blood Cells % 0.1 %/100WBC (0.0-0.8); Platelet Count 202 10^3/uL (150-450); Red Blood Count 4.22 10^6/uL (3.63-4.92); Red Cell Distribution Width 13.5 % (12-17); White Blood Count 10.1 10^3/uL (3.8-11.8)
[2023-04-17 17:32] LABS: Albumin 4.2 g/dL (3.2-5.2); Albumin/Globulin Ratio 1.3 (1-3); C Reactive Protein 12.15 mg/L (<8.01); Calcium 8.9 mg/dL (8.6-10.3); Creatinine, Serum 0.84 mg/dL (0.51-0.95); Globulin 3.3 g/dL (2-4); Potassium 4.2 mmol/L (3.5-5.0); Total Bilirubin 0.3 mg/dL (0.2-1.0); Total Protein 7.5 g/dL (6.4-8.9); eGFR CKD-EPI 83.6 (>60)
[2023-04-17] MEDS ORDERED: Morphine 4 MG/ML VIAL (1 ml) IV ONE (17:38)
[2023-04-17] MEDS ORDERED: Ondansetron 4 mg VIAL 2 MG/ML 2 ml VIAL IV ONE (17:38)
[2023-04-17 18:33] LABS: Urine Appearance Clear; Urine Bilirubin Negative (Negative); Urine Blood Negative (Negative); Urine Color Straw; Urine Glucose Negative (Negative); Urine Ketones Negative (Negative); Urine Nitrite Negative (Negative); Urine Protein Negative (Negative); Urine Specific Gravity 1.009 (1.002-1.030); Urine Urobilinogen Negative (Negative)
[2023-04-17] MEDS ORDERED: NS 0.9% 1000 ml BAG 1,000 ML IV ONE (18:40)
[2023-04-17] MEDS ORDERED: Cefepime 1 GM in Dextrose 1 GM/50 ML BAG IV ONE (18:40)
[2023-04-17 18:49] LABS: Urine Bacteria 1+ (Absent); Urine Red Blood Cell Trace(0-2/hpf) (Absent); Urine Squamous Epithelial Cell Present (Absent); Urine White Blood Cell Trace(0-5/hpf) (Absent)
[2023-04-17] MEDS ORDERED: Calcium Carb (TUMS) 500 mg CHEW TAB PO PRN (19:06)
[2023-04-17] MEDS ORDERED: Enalaprilat IV 1.25 mg/ml 1 ml VIAL (1.25 MG) IV PRN (19:08)
[2023-04-17] MEDS ORDERED: hydrALAZINE 20 mg/ml 1 ML Vial IV IV SLOW PU PRN (19:08)
[2023-04-17] MEDS: Ondansetron 4 mg VIAL 2 MG/ML 2 ml VIAL IV PRN (23:42)
[2023-04-17] MEDS: Lactated Ringers 1000 ml BAG 1,000 ML IV SCH (23:42)
[2023-04-18] MEDS: HYDROmorphone 1 MG/1 ML SYRINGE IV SLOW PU PRN ×2 (06:03→09:51)
[2023-04-18] MEDS: Ondansetron 4 mg VIAL 2 MG/ML 2 ml VIAL IV PRN ×2 (06:03→09:51)
[2023-04-18] MEDS: Lactated Ringers 1000 ml BAG 1,000 ML IV SCH (07:59)
[2023-04-18] MEDS ORDERED: Cefepime 1 GM in Dextrose 1 GM/50 ML BAG IV SCH (08:00)
[2023-04-18] MEDS ORDERED: Midazolam 2 mg/2 ml VIAL 1 mg/ml 2 ml VIAL (2 mg) ONE (13:11)
[2023-04-18] MEDS ORDERED: Bupivacaine 0.25% SDV 30 ML ONE (13:30)
[2023-04-18] MEDS ORDERED: Lidocaine 1% w EPI 1:200,000 SDV 30 ML VIAL ONE (13:30)
[2023-04-18] MEDS ORDERED: HYDROmorphone 0.5 MG/0.5 ML SYRINGE ONE (14:28)
[2023-04-18] MEDS ORDERED: Ondansetron 4 mg VIAL 2 MG/ML 2 ml VIAL ONE ×2 (14:31→16:48)
[2023-04-18] MEDS ORDERED: Acetaminophen IV 1 GM/100ML 1,000 MG/100 ML BAG IV ONE (14:38)
[2023-04-18] MEDS ORDERED: Rocuronium 50 mg VIAL 10 mg/ml 5 ml VIAL (50 mg) ONE (15:08)
[2023-04-18] MEDS ORDERED: Naloxone 0.4 mg VIAL 0.4 mg/ml 1 ml VIAL IV PRN (16:20)
[2023-04-18] MEDS ORDERED: fentaNYL 100 mcg/2 ml 50 MCG/ML VIAL IV PRN (16:20)
[2023-04-18] MEDS ORDERED: Ondansetron 4 mg VIAL 2 MG/ML 2 ml VIAL IV PRN (16:20)
[2023-04-18 17:51] VITALS: BP 160/96
== END 2023-04-18 18:15 | disposition home or self-care (01) ==
LOC: ED 14:41 → EDHOLD 14:41 → MED 21:34
PROVIDERS: ADMIT Surgery; ATTEND Surgery